=== PATIENT | female | born 1960 | race Caucasian/White ===

== ENCOUNTER 2021-04-01 09:55 | Emergency (ER) | payer OTHER, SELFPAY ==
[2021-04-01] VITALS (11 sets, daily range): BP systolic 76–218; BP diastolic 51–136; PULSE 76–99; RESP 15–18; TEMP 36.7; O2SAT 95–99; BMI 24.7
[2021-04-01] MEDS: metoprolol tartrate 1 mg/1 mL SDV 5 mL 2.5 MG IVP (10:48)
[2021-04-01] MEDS: hyDRALAzine 20 mg/mL INJ 1 mL IVP (10:49)
[2021-04-01] MEDS: metoprolol tartrate 25 mg Tablet PO (10:50)
[2021-04-01] MEDS: amlodipine 10 mg Tablet PO (10:50)
--- NOTE | 2021-04-01 10:50 | PC.PHAR ---
pt states she takes care of her own medications-rx filled on 01/11/21 90d/s for lisinopril 10mg daily pt states for the last 5 days or so she has been taking 10mg bid
--- NOTE | 2021-04-01 10:59 | W.ED.GENADLT ---
HPI - General Adult General: Chief complaint: General Medical Stated complaint: HTN Time Seen by Provider: 04/01/21 10:28 History of Present Illness: HPI narrative: 60-year-old female presents emergency room with elevated blood pressure and headache. She had noticed elevated blood pressure last several days she had doubled up on her lisinopril to twice a day from usual once a day and has not noticed any improvement. She not had any chest pain or suppressed. Onset (ago): day(s) Location: head Quality: aching Relieving factors: none Exacerbating factors: none Associated symptoms: Deny chest pain, confusion, cough, diaphoresis, decreased appetite, dyspnea, fevers/chills, headache(s), malaise, nausea, rash, palpitations, seizures, short of breath, syncope, vomiting or weakness Treatments prior to arrival: other (Oral antihypertensives) Review of Systems Const: Denies: malaise or diaphoresis ENMT: Denies: throat pain, ear or mastoid pain, nasal discharge or nasal congestion Card: Denies: chest pain, palpitations or syncope Resp: Denies: dyspnea GI: Denies: nausea or vomiting : Denies: flank pain, difficulty voiding, dysuria, urinary frequency or urinary urgency Skin/Breast: Denies: rash Neuro: Denies: headache(s) or confusion Physical Exam Const: COMMON NORMALS: no acute distress GENERAL APPEARANCE: cooperative and comfortable ORIENTATION/CONSCIOUSNESS: Yes awake, Yes oriented to person, Yes oriented to place and Yes oriented to time HENMT: COMMON NORMALS: normocephalic, atraumatic and hearing grossly normal bilaterally HEAD & SCALP: normocephalic and atraumatic Neck/C-Spine: COMMON NORMALS: no JVD Resp: COMMON NORMALS: normal respiratory effort, No retractions, No use of accessory muscles and clear to auscultation bilaterally AUSCULTATION: clear to auscultation bilaterally Cardio: COMMON NORMALS: no JVD, regular rate, regular rhythm and No murmurs present (Cardio) RATE: regular rate RHYTHM: regular rhythm GI: COMMON NORMALS: Soft to palpation and No hepatosplenomegaly present AUSCULTATION: Yes normoactive bowel sounds PALPATION: Yes Soft to palpation, No Tenderness to palpation present (GI), No Guarding due to palpation present (GI) and Yes No hepatosplenomegaly present Extremity: COMMON NORMALS: normal to inspection, capillary refill normal, no clubbing, cyanosis or edema, no calf tenderness and no pedal edema Neuro: SENSORIUM/ORIENTATION: Yes oriented to person, Yes oriented to place and Yes oriented to time Skin: COMMON NORMALS: no rashes or lesions noted GENERAL SKIN EXAM: no rashes or lesions noted Course Vital Signs: Vital signs: Vital Signs Temperature 98.1 F 04/01/21 10:19 Pulse Rate 83 04/01/21 14:05 Respiratory Rate 18 04/01/21 14:05 Blood Pressure 96/63 04/01/21 14:05 Pulse Oximetry 97 04/01/21 14:05 MDM - General Adult MDM Narrative: Medical decision making narrative: Patient blood pressure had improved we are about to discharge home and her blood pressure precipitously dropped. She is given a liter of fluids. She is now feeling better we will discharge her home initially we plan on sending her home with amlodipine and metoprolol. We will go ahead and just change that to amlodipine only continue her lisinopril recheck with Dr. Moreno tomorrow or the following day return if has problems Lab Data: Labs: Lab Results 04/01/21 04/01/21 04/01/21 Range/Units 10:37 10:37 11:29 WBC 7.3 (4.0-10.0) 10^3/ uL RBC 4.83 (4.1-5.3) 10^6/u L Hgb 14.7 (11.5-15.3) g/dL Hct 44.6 (37.0-47.0) % MCV 92.3 (81-99) fl MCH 30.4 (28.0-34.0) pg MCHC 33.0 (30.0-36.0) g/dL RDW 12.0 L (12.1-15.1) % Plt Count 280 (130-400) 10^3/c mm MPV 10.0 (7.4-10.4) fL Neut % (Auto) 65.4 % Lymph % (Auto) 27.4 % [place] % (Auto) 5.9 % Eos % (Auto) 0.4 % Baso % (Auto) 0.5 % Neut # (Auto) 4.80 (1.8-7.7) 10^3/u L Lymph # (Auto) 2.0 (0.8-4.8) 10^3/u L [place] # (Auto) 0.4 (0.2-0.9) 10^3/u L Eos # (Auto) 0.0 (0.0-0.8) 10^3/u L Baso # (Auto) 0.0 (0.0-0.1) 10^3/u L Nucleated RBC % (a uto) 0 % Nucleated RBCs # 0.0 /100WBC Sodium 135 L (136-145) mmol/L Potassium 3.9 (3.5-5.1) mmol/L Chloride 98 (98-107) mmol/L Carbon Dioxide 25 (22-29) mmol/L Anion Gap 15.9 (5-19) BUN 5 L (6-20) mg/dL Creatinine 0.5 (0.5-0.9) mg/dL GFR Calculation 126.3 (90-130) mL/min Glucose 95 (65-115) mg/dL Calculated Osmolal ity 277 L (285-295) mOsm/k g Calcium 9.4 (8.5-10.5) mg/dL Total Bilirubin 0.3 (0.15-1.2) mg/dL AST 18 (0-32) U/L ALT 18 (0-33) U/L Alkaline Phosphata se 92 (35-105) IU/L Total Protein 7.6 (6.6-8.7) g/dL Albumin 4.6 (3.5-5.2) g/dL Globulin 3.0 (1.3-4.6) g/dL Urine Color Colorless (Yellow) Urine Appearance Clear (CLEAR) Urine pH 7 (5-7) Ur Specific Gravit y 1.005 (1.005-1.030) Urine Protein Neg (Negative) Urine Glucose (UA) Norm (Normal) Urine Ketones Negative (Negative) Urine Blood Neg (Negative) Urine Nitrate Negative (Negative) Urine Bilirubin Neg (Negative) Urine Urobilinogen Norm (Negative) mg/dL Ur Leukocyte [place] ase Negative (Negative) Discharge Plan Discharge Patient Disposition: Home Clinical Impression: HTN (hypertension) Condition: Stable Prescriptions: New amlodipine 10 mg tablet 10 mg PO DAILY Qty: 30 RF: 0 No Action multivitamin Tablet 1 tab PO DAILY RF: 0 Tylenol 325 mg Tablet 325 mg PO Q4H PRN (Reason: Pain) RF: 0 Aspir-81 81 mg Tablet,Delayed Release (Dr/Ec) 81 mg PO ONCE RF: 0 lisinopril 10 mg tablet 10 mg PO BID RF: 0 CoQ-10 100 mg Capsule 100 mg PO QAM RF: 0 red yeast rice 600 mg Tablet 600 mg PO QAM RF: 0 Discharge Orders: Discharge ED (Routine); Ordered 04/01/21 Ordered By: Kayden Silva Referrals: Niko Moreno DO [Primary Care Provider] - Discharge Diet: Usual diet Discharge Activity: Increase activity as tolerated Patient Instructions: Opioid Safety Activity Restrictions/Additional Instructions: Recheck blood pressure in 2 to 3 days Coding Level of Care Code 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
[2021-04-01 11:02] LABS: Basophils % 0.5 %; Eosinophils % 0.4 %; Hematocrit 44.6 % (37.0-47.0); Hemoglobin 14.7 g/dL (11.5-15.3); Lymphocytes % 27.4 %; Mean Corpuscular Hemoglobin 30.4 pg (28.0-34.0); Mean Corpuscular Volume 92.3 fl (81-99); Monocytes # 0.4 10^3/uL (0.2-0.9); Monocytes % 5.9 %; Neutrophils % 65.4 %; Nucleated Red Blood Cells % 0 %; Platelet Count 280 10^3/cmm (130-400); Red Blood Count 4.83 10^6/uL (4.1-5.3); White Blood Count 7.3 10^3/uL (4.0-10.0)
[2021-04-01 11:15] LABS: Alanine Aminotransferase 18 U/L (0-33); Albumin Level 4.6 g/dL (3.5-5.2); Alkaline Phosphatase 92 IU/L (35-105); Anion Gap 15.9 (5-19); Aspartate Amino Transferase 18 U/L (0-32); Blood Urea Nitrogen 5 mg/dL (6-20); Calcium 9.4 mg/dL (8.5-10.5); Carbon Dioxide 25 mmol/L (22-29); Chloride 98 mmol/L (98-107); Glomerular Filtration Rate 126.3 mL/min (90-130); Glucose 95 mg/dL (65-115); Osmolality Calculated 277 mOsm/kg (285-295); Potassium 3.9 mmol/L (3.5-5.1); Sodium 135 mmol/L (136-145); Total Bilirubin 0.3 mg/dL (0.15-1.2); Total Protein 7.6 g/dL (6.6-8.7)
--- NOTE | 2021-04-01 11:19 | XRR_ITS ---
PROCEDURE INFORMATION: Exam: XR Chest Exam date and time: 04/01/2021 11:19 AM Age: 60 years old Clinical indication: Other: High blood pressure; Additional info: Dyspnea/cough TECHNIQUE: Imaging protocol: XR of the chest. Views: 1 view. COMPARISON: No relevant prior studies available. FINDINGS: Lungs: Unremarkable. No consolidation. Pleural spaces: Unremarkable. No pleural effusion. No pneumothorax. Heart/Mediastinum: Unremarkable. No cardiomegaly. Bones/joints: Unremarkable. XR/XR chest 1V portable [id number] IMPRESSION: No acute findings.
--- NOTE | 2021-04-01 11:19 | ECG_ITS ---
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
[2021-04-01 11:39] LABS: Add Urine Microscopic? NO; Charge for UA Resulting for Rev
[2021-04-01 11:51] LABS: Bilirubin Urine Neg (Negative); Blood Urine Neg (Negative); Glucose Urine UA Norm (Normal); Ketones Urine Negative (Negative); Leukocyte Esterase Urine Negative (Negative); Nitrate Urine Negative (Negative); Protein Urine Neg (Negative); Specific Gravity, Urine 1.005 (1.005-1.030); Urine Appearance Clear (CLEAR); Urine Color Colorless (Yellow); Urobilinogen Urine Norm (Negative); pH Urine 7 (5-7)
[2021-04-01] MEDS: cloNIDine 0.1 mg Tablet PO (11:54)
[2021-04-01] MEDS: hyDRALAzine 20 mg/mL INJ 1 mL 10 MG IVP (11:55)
[2021-04-01] MEDS: lactated ringers 1,000 ML 999 ML IV (13:17)
[2021-04-01] MEDS: ondansetron 2 mg/ML SDV 2 mL 4 MG IVP (13:17)
== END 2021-04-01 14:13 | disposition home or self-care (01) ==
PROVIDERS: Emergency Provider Family Medicine; PCP Electrodiagnostic Medicine
DX: I10 Essential (primary) hypertension (principal); Z79.82 Long term (current) use of aspirin
CPT/HCPCS: 36415; 71045; 80053; 81003; 85025; 93005; 96361; 96374; 96375; 96376; 99284; J0360; J2405; J3490

== ENCOUNTER 2021-04-07 15:58 | Emergency (ER) | payer OTHER, SELFPAY ==
[2021-04-07 16:07] VITALS: BP 128/84; PULSE 111; RESP 15; TEMP 36.7; O2SAT 97; BMI 24.7
--- NOTE | 2021-04-07 17:42 | ECG_ITS ---
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 Measurements Intervals [place] Rate: 90 P: 62 [place]: 155 QRS: -11 QRSD: 96 T: 48 QT: 369 QTc: 454 Interpretive Statements SINUS RHYTHM INDETERMINATE AXIS INCOMPLETE RIGHT BUNDLE BRANCH BLOCK Compared to ECG 04/01/2021 12:08:36 Indeterminate axis now present Incomplete right bundle-branch block now present Electronically Signed On 04-08-2021 19:11:56 CDT by Holly Ambriz M.D. [id number]
[2021-04-07 18:00] VITALS: BP 172/104; PULSE 97; RESP 18; O2SAT 97
--- NOTE | 2021-04-07 18:05 | W.ED.GENADLT ---
HPI - General Adult General: Chief complaint: General Medical Stated complaint: POSS ALLERGIC RX, N/V/SHAKEY Time Seen by Provider: 04/07/21 17:37 History of Present Illness: HPI narrative: Patient is a 60-year-old female comes to the ED with nausea and vomiting and diarrhea. Patient says that she believes she is having a reaction to her recently prescribed Lexapro. Patient says 4 days ago her doctor put her on Lexapro and since she started taking it she began getting nauseous and had diarrhea. She has just been having dry heaves and multiple episodes of diarrhea for the past couple days. Her last dose of Lexapro was at 10 AM today. She also reports that her extremities feel shaky. Associated symptoms: Reports nausea and vomiting; Deny chest pain, dyspnea, headache(s), rash or palpitations Review of Systems Const: Denies: fever(s), chills or fatigue Eyes: Denies: change in vision or eye discomfort ENMT: Denies: throat pain, odynophagia, nasal discharge or nasal congestion Card: Denies: chest pain, palpitations, edema, swelling of feet/ankles, dyspnea on exertion or orthopnea Resp: Denies: dyspnea, productive cough or non-productive cough GI: Reports: nausea, vomiting and diarrhea; Denies: abdominal pain, constipation or hematochezia : Denies: flank pain, dysuria or hematuria Musc: Denies: neck pain, back pain or extremity swelling Skin/Breast: Denies: rash or new lesions Neuro: Reports: involuntary movements (Extremities feels shaky); Denies: headache(s), numbness in extremities or weakness in extremities Physical Exam Const: COMMON NORMALS: no acute distress, patient oriented x3, healthy appearing and alert GENERAL APPEARANCE: cooperative, comfortable and anxious HENMT: COMMON NORMALS: normocephalic HEAD & SCALP: normocephalic MOUTH: Normal oral and palatal mucosa present THROAT: posterior oropharynx normal and uvula midline Eye: COMMON NORMALS: Equal, round and reactive pupils present PUPIL: Yes Equal, round and reactive pupils present Neck/C-Spine: COMMON NORMALS: supple GENERAL: Yes normal visual inspection Resp: COMMON NORMALS: normal respiratory effort, No retractions, No use of accessory muscles and clear to auscultation bilaterally AUSCULTATION: clear to auscultation bilaterally Cardio: COMMON NORMALS: regular rate, regular rhythm, S1 normal heart sound present, S2 normal heart sound present, No gallops present (Cardio), No clicks present (Cardio), No murmurs present (Cardio) and Peripheral pulses 2+ throughout RATE: regular rate RHYTHM: regular rhythm HEART SOUNDS: S1 normal heart sound present and S2 normal heart sound present PERIPHERAL PULSES: Peripheral pulses 2+ throughout GI: COMMON NORMALS: Normal to inspection, nondistended, normoactive bowel sounds present, Soft to palpation, non-tender and no masses PALPATION: Yes Soft to palpation : COMMON NORMALS: Yes no CVA tenderness BLADDER/KIDNEY EXAM: Yes no CVA tenderness Back/Pelvis: COMMON NORMALS: no CVA tenderness Extremity: COMMON NORMALS: normal to inspection and no pedal edema Neuro: COMMON NORMALS: patient oriented x3 and moves all extremities SENSORIUM/ORIENTATION: Yes alert Skin: GENERAL SKIN EXAM: dry skin Course ED course: After patient received IV fluids, Benadryl and Zofran her symptoms improved. She states she is feeling much better and ready to be discharged home. Vital Signs: Vital signs: Vital Signs Temperature 98.0 F 04/07/21 16:07 Pulse Rate 86 04/07/21 21:30 Respiratory Rate 16 04/07/21 21:30 Blood Pressure 109/71 04/07/21 21:30 Pulse Oximetry 95 04/07/21 21:30 MDM - General Adult MDM Narrative: Medical decision making narrative: Patient is a 60-year-old female comes to the ED with nausea, vomiting and diarrhea. Symptoms started right after she began taking Lexapro. She also endorses some increased anxiety as well due to the GI symptoms. These are common medication side effects for Lexapro. Exam is benign. Vitals are stable. CBC unremarkable, sodium 127 and the rest of CMP was unremarkable. Chest x-ray showed no acute findings and EKG showed no acute FL findings. She was given 1 L of IV fluids, Zofran, Benadryl and Ativan and her symptoms improved. She was instructed to stop taking her Lexapro and to contact her doctor tomorrow to determine other medication options for anxiety. She was also instructed to have her sodium level rechecked in the next 3 to 5 days by her PCP. Return to ED precautions given. Patient understood and agreed with plan. Lab Data: Attestation: I reviewed the patient's lab results. Labs: Lab Results 04/07/21 04/07/21 04/07/21 Range/Units 17:55 17:55 19:32 WBC 8.4 (4.0-10.0) 10^3/ uL RBC 4.87 (4.1-5.3) 10^6/u L Hgb 14.9 (11.5-15.3) g/dL Hct 43.8 (37.0-47.0) % MCV 89.9 (81-99) fl MCH 30.6 (28.0-34.0) pg MCHC 34.0 (30.0-36.0) g/dL RDW 11.7 L (12.1-15.1) % Plt Count 316 (130-400) 10^3/c mm MPV 9.8 (7.4-10.4) fL Neut % (Auto) 75.6 % Lymph % (Auto) 17.6 % [place] % (Auto) 6.1 % Eos % (Auto) 0.2 % Baso % (Auto) 0.1 % Neut # (Auto) 6.31 (1.8-7.7) 10^3/u L Lymph # (Auto) 1.5 (0.8-4.8) 10^3/u L [place] # (Auto) 0.5 (0.2-0.9) 10^3/u L Eos # (Auto) 0.0 (0.0-0.8) 10^3/u L Baso # (Auto) 0.0 (0.0-0.1) 10^3/u L Nucleated RBC % (a uto) 0 % Nucleated RBCs # 0.0 /100WBC Sodium 127 L (136-145) mmol/L Potassium 4.0 (3.5-5.1) mmol/L Chloride 91 L (98-107) mmol/L Carbon Dioxide 24 (22-29) mmol/L Anion Gap 16.0 (5-19) BUN 4 L (6-20) mg/dL Creatinine 0.5 (0.5-0.9) mg/dL GFR Calculation 126.3 (90-130) mL/min Glucose 127 H (65-115) mg/dL Calculated Osmolal ity 262 L (285-295) mOsm/k g Calcium 9.3 (8.5-10.5) mg/dL Total Bilirubin 0.5 (0.15-1.2) mg/dL AST 17 (0-32) U/L ALT 17 (0-33) U/L Alkaline Phosphata se 99 (35-105) IU/L Total Protein 7.2 (6.6-8.7) g/dL Albumin 4.7 (3.5-5.2) g/dL Globulin 2.5 (1.3-4.6) g/dL Lipase 28 (13-60) U/L Urine Color Straw (Yellow) Urine Appearance Clear (CLEAR) Urine pH 7 (5-7) Ur Specific Gravit y 1.010 (1.005-1.030) Urine Protein Neg (Negative) Urine Glucose (UA) Norm (Normal) Urine Ketones Negative (Negative) Urine Blood Neg (Negative) Urine Nitrate Negative (Negative) Urine Bilirubin Neg (Negative) Urine Urobilinogen Norm (Negative) mg/dL Ur Leukocyte [place] ase Negative (Negative) Imaging Data^: CXR: Attestation: I personally reviewed and interpreted this imaging study as follows: Radiologist's impression: [address] [address]CTvl ReportSigned Patient: Shandra Alvarez #: [id number]: 1960cct#:[id number]/Sex: 60 / FADM Date: 04/01/21Loc: [facility]/Bed:Attending Dr: Ordering Provider/Ordering MD: Kayden Silva DO Date of Service: 04/01/21 Procedure(s): XR chest 1V portable [id number] Accession Number(s): [id number] Report Number: [id number] PROCEDURE INFORMATION: Exam: XR Chest Exam date and time: 04/01/2021 11:19 AM Age: 60 years old Clinical indication: Other: High blood pressure; Additional info: Dyspnea/cough TECHNIQUE: Imaging protocol: XR of the chest. Views: 1 view. COMPARISON: No relevant prior studies available. FINDINGS: Lungs: Unremarkable. No consolidation. Pleural spaces: Unremarkable. No pleural effusion. No pneumothorax. Heart/Mediastinum: Unremarkable. No cardiomegaly. Bones/joints: Unremarkable. XR/XR chest 1V portable [id number] IMPRESSION: No acute findings. Dictated By:Jf Chapin By:Jf Chapin Date/Time:04/01/21 1236DD/ 1234 EKG Data^: EKG 1: Attestation: I personally reviewed and interpreted this EKG as follows: EKG interpretation date: 04/07/21 Interpretation: Sinus rhythm, 90 bpm, no ST segment elevation or depression seen. Discharge Plan Discharge Patient Disposition: Home Clinical Impression: Medication side effects, Hyponatremia Condition: Stable Prescriptions: No Action acetaminophen [Tylenol] 325 mg Tablet 325 mg PO Q4H PRN (Reason: Pain) RF: 0 lisinopril 10 mg tablet 20 mg PO DAILY RF: 0 amlodipine 10 mg tablet 10 mg PO DAILY PRN (Reason: Blood Pressure) RF: 0 Discharge Orders: Discharge ED (Routine); Ordered 04/07/21 Ordered By: Raúl Monsivais Referrals: Niko Moreno DO [Primary Care Provider] - Discharge Diet: Regular Discharge Activity: Increase activity as tolerated Patient Instructions: Hyponatremia (ED) Activity Restrictions/Additional Instructions: Follow-up with medical provider as directed in the next 1 to 3 days. Have a primary care physician recheck your sodium levels as well in the next couple days. Stop taking your prescribed amlodipine and Lexapro due to the side effects. Talk with your doctor about other medication options for blood pressure and anxiety. Take all other medications as prescribed. Return to the ER or your medical provider if condition worsens. Please read and understand discharge instructions. Thank you for choosing [facility] for your healthcare needs today. Please realize this is an emergency room and that we are providing you with a medical screening exam and this may not be complete and all inclusive of all the testing and or work up that you may need to determine your ailment or severity of your illness. It is very important that you follow up as instructed or that you return to the Emergency Department should you have concerns or if your condition changes or worsens in any way. 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
[2021-04-07 18:07] LABS: Basophils % 0.1 %; Eosinophils % 0.2 %; Hematocrit 43.8 % (37.0-47.0); Hemoglobin 14.9 g/dL (11.5-15.3); Lymphocytes # 1.5 10^3/uL (0.8-4.8); Lymphocytes % 17.6 %; Mean Corpuscular Hemoglobin 30.6 pg (28.0-34.0); Mean Corpuscular Volume 89.9 fl (81-99); Mean Platelet Volume 9.8 fL (7.4-10.4); Monocytes # 0.5 10^3/uL (0.2-0.9); Monocytes % 6.1 %; Neutrophils # 6.31 10^3/uL (1.8-7.7); Neutrophils % 75.6 %; Nucleated Red Blood Cells % 0 %; Platelet Count 316 10^3/cmm (130-400); Red Blood Count 4.87 10^6/uL (4.1-5.3); Red Cell Distribution Width 11.7 % (12.1-15.1); White Blood Count 8.4 10^3/uL (4.0-10.0)
[2021-04-07] MEDS: sodium chloride 0.9% 500 ML 999 ML IV ×2 (18:22→20:59)
[2021-04-07] MEDS: ondansetron 2 mg/ML SDV 2 mL 4 MG IVP (18:23)
[2021-04-07] MEDS: diphenhydrAMINE 50 mg/mL SDV 1mL IVP (18:23)
[2021-04-07] MEDS: LORazepam 2 mg/mL INJ 1 mL 1 MG IVP (19:16)
[2021-04-07 19:44] LABS: Add Urine Microscopic? NO; Charge for UA Resulting for Rev
[2021-04-07 19:54] LABS: Bilirubin Urine Neg (Negative); Blood Urine Neg (Negative); Glucose Urine UA Norm (Normal); Ketones Urine Negative (Negative); Leukocyte Esterase Urine Negative (Negative); Nitrate Urine Negative (Negative); Protein Urine Neg (Negative); Urine Appearance Clear (CLEAR); Urine Color Straw (Yellow); Urobilinogen Urine Norm (Negative); pH Urine 7 (5-7)
[2021-04-07 19:57] LABS: Alanine Aminotransferase 17 U/L (0-33); Albumin Level 4.7 g/dL (3.5-5.2); Alkaline Phosphatase 99 IU/L (35-105); Aspartate Amino Transferase 17 U/L (0-32); Blood Urea Nitrogen 4 mg/dL (6-20); Calcium 9.3 mg/dL (8.5-10.5); Carbon Dioxide 24 mmol/L (22-29); Chloride 91 mmol/L (98-107); Globulin 2.5 g/dL (1.3-4.6); Glomerular Filtration Rate 126.3 mL/min (90-130); Glucose 127 mg/dL (65-115); Lipase 28 U/L (13-60); Osmolality Calculated 262 mOsm/kg (285-295); Sodium 127 mmol/L (136-145); Total Bilirubin 0.5 mg/dL (0.15-1.2); Total Protein 7.2 g/dL (6.6-8.7)
[2021-04-07 21:30] VITALS: BP 109/71; PULSE 86; RESP 16; O2SAT 95
== END 2021-04-07 21:30 | disposition home or self-care (01) ==
PROVIDERS: Emergency Provider Physician Assistant; PCP Electrodiagnostic Medicine
DX: T88.7XXA Unspecified adverse effect of drug or medicament, initial encounter (principal); T50.905A Adverse effect of unspecified drugs, medicaments and biological substances, initial encounter; E87.1 Hypo-osmolality and hyponatremia
CPT/HCPCS: 80053; 81003; 83690; 85025; 87040; 93005; 96374; 96375; 99284; J1200; J2060; J2405; J7040

== ENCOUNTER 2021-04-10 17:18 | Observation (INO) | payer OTHER, SELFPAY ==
[2021-04-10] VITALS (8 sets, daily range): BP systolic 142–194; BP diastolic 86–127; PULSE 102–134; RESP 16–26; TEMP 36.8; O2SAT 97–99; BMI 24.7
--- NOTE | 2021-04-10 17:25 | XRR_ITS ---
PROCEDURE INFORMATION: Exam: XR Chest Exam date and time: 04/10/2021 5:25 PM Age: 60 years old Clinical indication: Hypertension TECHNIQUE: Imaging protocol: XR of the chest. Views: 1 view. COMPARISON: CR (CHEST, ) 04/01/2021 11:26 AM FINDINGS: Lungs: No pulmonary consolidation. There is a nodule in the mid upper right chest measuring 6.4 mm. Pleural spaces: No pleural effusion.; No pneumothorax. Heart/Mediastinum: The cardiac silhouette is unchanged. No gross evidence of pneumomediastinum. Bones/joints: No gross fracture. XR/XR chest 1V portable [id number] IMPRESSION: Nodule in the mid upper right chest. Recommend CT chest to further assess.
--- NOTE | 2021-04-10 17:26 | ECG_ITS ---
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1960 Requested By: Raúl Monsivais Order Number: [id number] Devang MD: MALU COREA Measurements Intervals [place] Rate: 124 P: 47 [place]: 157 QRS: -49 QRSD: 96 T: 41 QT: 429 QTc: 618 Interpretive Statements SINUS TACHYCARDIA INCOMPLETE RIGHT BUNDLE BRANCH BLOCK [90+ ms QRS DURATION, TERMINAL R IN V1/V2, 40+ ms S IN I/aVL/V4/V5/V6] LEFT ANTERIOR FASCICULAR BLOCK [QRS AXIS <= -45, QR IN I, RS IN II] POSSIBLE ANTERIOR MYOCARDIAL INFARCTION , PROBABLY OLD [30 ms Q WAVE IN V3/V4, OR R < 0.2 mV IN V4] Compared to ECG 04/07/2021 18:07:37 Left anterior fascicular block now present Myocardial infarct finding now present Sinus rhythm no longer present Indeterminate axis no longer present Electronically Signed On 04-10-2021 19:25:52 CDT by MALU COREA [id number]
[2021-04-10 17:40] LABS: Basophils % 0.4 %; Eosinophils % 0.4 %; Hematocrit 42.9 % (37.0-47.0); Hemoglobin 14.4 g/dL (11.5-15.3); Lymphocytes # 2.4 10^3/uL (0.8-4.8); Lymphocytes % 30.4 %; Mean Corpuscular HGB Conc 33.6 g/dL (30.0-36.0); Mean Corpuscular Volume 89.4 fl (81-99); Monocytes # 0.6 10^3/uL (0.2-0.9); Neutrophils # 4.71 10^3/uL (1.8-7.7); Neutrophils % 60.5 %; Nucleated Red Blood Cells % 0 %; Platelet Count 316 10^3/cmm (130-400); Red Cell Distribution Width 11.5 % (12.1-15.1); White Blood Count 7.8 10^3/uL (4.0-10.0)
--- NOTE | 2021-04-10 17:46 | CTR_ITS ---
PROCEDURE INFORMATION: Exam: CT Head Without Contrast Exam date and time: 04/10/2021 5:46 PM Age: 60 years old Clinical indication: Pain. Dizziness and visual disturbance. Headache. Hypertensive urgency. TECHNIQUE: Imaging protocol: Computed tomography of the head without contrast. Radiation optimization: All CT scans at this facility use at least one of these dose optimization techniques: automated exposure control; mA and/or kV adjustment per patient size (includes targeted exams where dose is matched to clinical indication); or iterative reconstruction. COMPARISON: No relevant prior studies available. RADIATION DOSE METRICS: Total DLP (mGy-cm): 764.07 FINDINGS: Brain: No acute intracranial hemorrhage. No mass, mass effect or midline shift.; There is no evidence of acute large vessel infarct.; The subcortical and periventricular white matter is normal in attenuation.; The posterior fossa is grossly unremarkable; however, it is partially obscurred by beam hardening artifact. Cerebral ventricles: The ventricles are normal in configuration. Paranasal sinuses: The visualized paranasal sinuses are clear. Mastoid air cells: No mastoid effusion. Orbital cavity: The visualized orbits are unremarkable. Bones/joints: No acute fracture is seen. CT/CT head wo con* [id number] IMPRESSION: No acute intracranial abnormality. Radiation Dose CTDIVOL = (mGy): DLP = 764.07 (mGy-cm)
--- NOTE | 2021-04-10 17:48 | W.ED.RECABL ---
Documented by User: YOSSI Davila 04/11/21 02:07 HPI - Recheck/Abnormal Lab/Rx General: Chief Complaint: Recheck/Abnormal Lab/Rx Stated Complaint: HYPERTENSION Time Seen by Provider: 04/10/21 17:25 History of Present Illness: HPI narrative: Patient is a 60-year-old female comes to the ED with elevated blood pressure and chest tightness. Patient has been seen here in the ED for similar complaint on April 01 and April 07. She has a history of anxiety and takes Xanax. Patient says yesterday she worked about 11 hours and then today she worked about 7 hours and when she got home she started feeling some chest tightness, elevated blood pressure and anxiety. She took one of her Xanax tabs at around 2 PM today and then took a second tab around 4 PM. She says the symptoms have improved some upon arrival to the ED. She says the chest tightness started while she was at rest at home. She went in and saw her PCP today and they told her she is likely having anxiety and sent a prescription to the pharmacy for daily med to help with anxiety. She has not been to the pharmacy yet to pick that up. She then came here to be evaluated. Patient says she lives at home alone and notices that symptoms like this usually occur when she is at home alone. She says she does not really ever have symptoms at work and while she is up doing things. She has lived at home alone now for approximately 2 years but says the last couple weeks she has noticed an increase in these anxiety attacks symptoms. Denies any known acute stress in her life. Review of Systems Const: Denies: fever(s), chills or fatigue Eyes: Denies: change in vision or eye discomfort ENMT: Denies: throat pain, odynophagia, nasal discharge or nasal congestion Card: Reports: chest pain (chest tightness); Denies: palpitations, edema, swelling of feet/ankles, dyspnea on exertion or orthopnea Resp: Denies: dyspnea, productive cough or non-productive cough GI: Denies: abdominal pain, nausea, vomiting, diarrhea, constipation or hematochezia : Denies: flank pain, dysuria or hematuria Musc: Denies: neck pain, back pain or extremity swelling Skin/Breast: Denies: rash or new lesions Neuro: Reports: headache(s); Denies: numbness in extremities or weakness in extremities Psych: Reports: anxiety PFSH ED PFSH: Medical History History of hypertension Labile hypertension Surgical History History of hysterectomy Family History Mother Hypertension Father Hypertension Cancer Social History Smoking and tobacco status: never smoked Alcohol intake: current Alcohol intake frequency: holidays/special occasions only Substance/Drug Use: never Physical Exam Const: COMMON NORMALS: no acute distress, patient oriented x3 and alert GENERAL APPEARANCE: cooperative and anxious HENMT: COMMON NORMALS: normocephalic HEAD & SCALP: normocephalic MOUTH: Normal oral and palatal mucosa present THROAT: posterior oropharynx normal and uvula midline Eye: COMMON NORMALS: Equal, round and reactive pupils present PUPIL: Yes Equal, round and reactive pupils present Neck/C-Spine: COMMON NORMALS: supple GENERAL: Yes normal visual inspection Resp: COMMON NORMALS: normal respiratory effort, No retractions, No use of accessory muscles and clear to auscultation bilaterally AUSCULTATION: clear to auscultation bilaterally Cardio: COMMON NORMALS: regular rhythm, S1 normal heart sound present, S2 normal heart sound present, No gallops present (Cardio), No clicks present (Cardio), No murmurs present (Cardio) and Peripheral pulses 2+ throughout RATE: tachycardic RHYTHM: regular rhythm HEART SOUNDS: S1 normal heart sound present and S2 normal heart sound present PERIPHERAL PULSES: Peripheral pulses 2+ throughout GI: COMMON NORMALS: Normal to inspection, nondistended, normoactive bowel sounds present, Soft to palpation, non-tender and no masses PALPATION: Yes Soft to palpation : COMMON NORMALS: Yes no CVA tenderness BLADDER/KIDNEY EXAM: Yes no CVA tenderness Back/Pelvis: COMMON NORMALS: no CVA tenderness Neuro: COMMON NORMALS: patient oriented x3, CN's II-XII intact bilaterally, moves all extremities, no focal motor deficits and no sensory deficits noted SENSORIUM/ORIENTATION: Yes alert SENSORY EXAM: Yes extremities (intact) MOTOR EXAM: 5/5 motor strength present throughout Skin: GENERAL SKIN EXAM: dry skin Course Reevaluation(s): Reevaluation #1: After reevaluating the patient her heart rate is still in the 130s and she is complaining of not feeling able to take a deep breath. I spoke with Dr. Guevara and he went in and evaluated the patient. EKG was done as well and showed sinus tachycardia with a rate of 132. Time: 20:13 Consultations: Consultation #1: I contacted Dr. Barnes and told about patient case and he agreed to have patient admitted. Vital Signs: Vital signs: Vital Signs Temperature 97.4 F L 04/11/21 07:36 Pulse Rate 94 04/11/21 07:36 Respiratory Rate 18 04/11/21 07:36 Blood Pressure 162/91 04/11/21 07:36 Pulse Oximetry 99 04/11/21 07:36 MDM - Recheck/Abnormal Lab/Rx MDM Narrative: Medical decision making narrative: Patient is a 60-year-old female comes to the ED with chest tightness and elevated blood pressure. Patient has been seen here in the ED 3 times over the past 10 days for same complaint. Vitals blood pressure 192/127, pulse 130, respirations 22, temp 98.3, O2 sat 99% on room air. Patient does have some anxiety and took Xanax before coming to the ED but her symptoms are not improving. Patient appears very anxious and is tachycardic. CBC, CMP were unremarkable. Troponin negative. D-dimer normal. EKG showed sinus tachycardia but no other acute findings. Patient was given IV fluids while here in the ED and she remained tachycardic with a rate between 1 tornado 140. Chest x-ray showed a nodule in mid upper right chest. Head CT showed no acute findings. Chest CTA showed small right upper segmental PE with no right heart strain. CT also showed some adrenal gland inflammation. We spoke with Dr. Guevara about patient case and he evaluated patient as well and agreed that patient needs to be admitted. I contacted Dr. Barnes and told about patient case and he agreed to have patient admitted. Lab Data: Attestation: I reviewed the patient's lab results. Labs: Lab Results 04/10/21 04/10/21 04/10/21 Range/Units 17:08 17:08 17:08 WBC 7.8 (4.0-10.0) 10^3/ uL RBC 4.80 (4.1-5.3) 10^6/u L Hgb 14.4 (11.5-15.3) g/dL Hct 42.9 (37.0-47.0) % MCV 89.4 (81-99) fl MCH 30.0 (28.0-34.0) pg MCHC 33.6 (30.0-36.0) g/dL RDW 11.5 L (12.1-15.1) % Plt Count 316 (130-400) 10^3/c mm MPV 10.0 (7.4-10.4) fL Neut % (Auto) 60.5 % Lymph % (Auto) 30.4 % [place] % (Auto) 8.0 % Eos % (Auto) 0.4 % Baso % (Auto) 0.4 % Neut # (Auto) 4.71 (1.8-7.7) 10^3/u L Lymph # (Auto) 2.4 (0.8-4.8) 10^3/u L [place] # (Auto) 0.6 (0.2-0.9) 10^3/u L Eos # (Auto) 0.0 (0.0-0.8) 10^3/u L Baso # (Auto) 0.0 (0.0-0.1) 10^3/u L Nucleated RBC % (a uto) 0 % Nucleated RBCs # 0.0 /100WBC D-Dimer (0-0.59) ug/mIFE U Sodium 133 L (136-145) mmol/L Potassium 4.0 (3.5-5.1) mmol/L Chloride 96 L (98-107) mmol/L Carbon Dioxide 25 (22-29) mmol/L Anion Gap 16.0 (5-19) BUN 7 (6-20) mg/dL Creatinine 0.5 (0.5-0.9) mg/dL GFR Calculation 126.3 (90-130) mL/min Glucose 78 (65-115) mg/dL Calculated Osmolal ity 273 L (285-295) mOsm/k g Calcium 9.5 (8.5-10.5) mg/dL Total Bilirubin 0.3 (0.15-1.2) mg/dL AST 18 (0-32) U/L ALT 20 (0-33) U/L Alkaline Phosphata se 91 (35-105) IU/L Troponin T Baselin e 7 (0-10) ng/L Troponin T 120 Min [place] (0-10) ng/L Delta Troponin T (0-10) ABS# Troponin T Hi Sens 6Hr (0-10) ng/L Troponin T Hi Sens 6Hr Delta (0-12) ng/L NT-Pro-B Natriuret Pep 17 (0-125) pg/mL Total Protein 7.9 (6.6-8.7) g/dL Albumin 4.8 (3.5-5.2) g/dL Globulin 3.1 (1.3-4.6) g/dL Lipase 44 (13-60) U/L Random Cortisol (2.47-19.5) ug/d L Urine Color (Yellow) Urine Appearance (CLEAR) Urine pH (5-7) Ur Specific Gravit y (1.005-1.030) Urine Protein (Negative) Urine Glucose (UA) (Normal) Urine Ketones (Negative) Urine Blood (Negative) Urine Nitrate (Negative) Urine Bilirubin (Negative) Urine Urobilinogen (Negative) mg/dL Ur Leukocyte [place] (Negative) 04/10/21 04/10/21 04/10/21 Range/Units 17:08 17:34 21:02 WBC (4.0-10.0) 10^3/ uL RBC (4.1-5.3) 10^6/u L Hgb (11.5-15.3) g/dL Hct (37.0-47.0) % MCV (81-99) fl MCH (28.0-34.0) pg MCHC (30.0-36.0) g/dL RDW (12.1-15.1) % Plt Count (130-400) 10^3/c mm MPV (7.4-10.4) fL Neut % (Auto) % Lymph % (Auto) % [place] % (Auto) % Eos % (Auto) % Baso % (Auto) % Neut # (Auto) (1.8-7.7) 10^3/u L Lymph # (Auto) (0.8-4.8) 10^3/u L [place] # (Auto) (0.2-0.9) 10^3/u L Eos # (Auto) (0.0-0.8) 10^3/u L Baso # (Auto) (0.0-0.1) 10^3/u L Nucleated RBC % (a uto) % Nucleated RBCs # /100WBC D-Dimer <= 0.27 (0-0.59) ug/mIFE U Sodium (136-145) mmol/L Potassium (3.5-5.1) mmol/L Chloride (98-107) mmol/L Carbon Dioxide (22-29) mmol/L Anion Gap (5-19) BUN (6-20) mg/dL Creatinine (0.5-0.9) mg/dL GFR Calculation (90-130) mL/min Glucose (65-115) mg/dL Calculated Osmolal ity (285-295) mOsm/k g Calcium (8.5-10.5) mg/dL Total Bilirubin (0.15-1.2) mg/dL AST (0-32) U/L ALT (0-33) U/L Alkaline Phosphata se (35-105) IU/L Troponin T Baselin e (0-10) ng/L Troponin T 120 Min [place] 10.83 H (0-10) ng/L Delta Troponin T 3.83 (0-10) ABS# Troponin T Hi Sens 6Hr (0-10) ng/L Troponin T Hi Sens 6Hr Delta (0-12) ng/L NT-Pro-B Natriuret Pep (0-125) pg/mL Total Protein (6.6-8.7) g/dL Albumin (3.5-5.2) g/dL Globulin (1.3-4.6) g/dL Lipase (13-60) U/L Random Cortisol (2.47-19.5) ug/d L Urine Color Straw (Yellow) Urine Appearance Clear (CLEAR) Urine pH 7 (5-7) Ur Specific Gravit y 1.000 L (1.005-1.030) Urine Protein Neg (Negative) Urine Glucose (UA) Norm (Normal) Urine Ketones 1+ H (Negative) Urine Blood Neg (Negative) Urine Nitrate Negative (Negative) Urine Bilirubin Neg (Negative) Urine Urobilinogen Norm (Negative) mg/dL Ur Leukocyte [place] Negative (Negative) 09/15/21 09/15/21 Range/Units 23:24 23:24 WBC (4.0-10.0) 10^3/ uL RBC (4.1-5.3) 10^6/u L Hgb (11.5-15.3) g/dL Hct (37.0-47.0) % MCV (81-99) fl MCH (28.0-34.0) pg MCHC (30.0-36.0) g/dL RDW (12.1-15.1) % Plt Count (130-400) 10^3/c mm MPV (7.4-10.4) fL Neut % (Auto) % Lymph % (Auto) % [place] % (Auto) % Eos % (Auto) % Baso % (Auto) % Neut # (Auto) (1.8-7.7) 10^3/u L Lymph # (Auto) (0.8-4.8) 10^3/u L [place] # (Auto) (0.2-0.9) 10^3/u L Eos # (Auto) (0.0-0.8) 10^3/u L Baso # (Auto) (0.0-0.1) 10^3/u L Nucleated RBC % (a uto) % Nucleated RBCs # /100WBC D-Dimer (0-0.59) ug/mIFE U Sodium (136-145) mmol/L Potassium (3.5-5.1) mmol/L Chloride (98-107) mmol/L Carbon Dioxide (22-29) mmol/L Anion Gap (5-19) BUN (6-20) mg/dL Creatinine (0.5-0.9) mg/dL GFR Calculation (90-130) mL/min Glucose (65-115) mg/dL Calculated Osmolal ity (285-295) mOsm/k g Calcium (8.5-10.5) mg/dL Total Bilirubin (0.15-1.2) mg/dL AST (0-32) U/L ALT (0-33) U/L Alkaline Phosphata se (35-105) IU/L Troponin T Baselin e (0-10) ng/L Troponin T 120 Min [place] (0-10) ng/L Delta Troponin T (0-10) ABS# Troponin T Hi Sens 6Hr 11.59 H (0-10) ng/L Troponin T Hi Sens 6Hr Delta 4.59 (0-12) ng/L NT-Pro-B Natriuret Pep (0-125) pg/mL Total Protein (6.6-8.7) g/dL Albumin (3.5-5.2) g/dL Globulin (1.3-4.6) g/dL Lipase (13-60) U/L Random Cortisol 11.24 (2.47-19.5) ug/d L Urine Color (Yellow) Urine Appearance (CLEAR) Urine pH (5-7) Ur Specific Gravit y (1.005-1.030) Urine Protein (Negative) Urine Glucose (UA) (Normal) Urine Ketones (Negative) Urine Blood (Negative) Urine Nitrate (Negative) Urine Bilirubin (Negative) Urine Urobilinogen (Negative) mg/dL Ur Leukocyte [place] (Negative) Imaging Data^: CT Head: Attestation: I personally reviewed and interpreted this imaging study as follows: Radiologist's impression: [address] [address] [address] Scan Report Signed Patient: Shandra Alvarez Unit #: [id number] : 1960 Age/Sex: 60 / F ADM Date: 04/10/21 Loc: ER Room/Bed: Attending Dr: Ordering Provider/Ordering MD: Raúl Monsivais Date of Service: 04/10/21 Procedure(s): CT head wo con* [id number] Accession Number(s): [id number] Report Number: [id number] PROCEDURE INFORMATION: Exam: CT Head Without Contrast Exam date and time: 04/10/2021 5:46 PM Age: 60 years old Clinical indication: Pain. Dizziness and visual disturbance. Headache. Hypertensive urgency. TECHNIQUE: Imaging protocol: Computed tomography of the head without contrast. Radiation optimization: All CT scans at this facility use at least one of these dose optimization techniques: automated exposure control; mA and/or kV adjustment per patient size (includes targeted exams where dose is matched to clinical indication); or iterative reconstruction. COMPARISON: No relevant prior studies available. RADIATION DOSE METRICS: Total DLP (mGy-cm): 764.07 FINDINGS: Brain: No acute intracranial hemorrhage. No mass, mass effect or midline shift.; There is no evidence of acute large vessel infarct.; The subcortical and periventricular white matter is normal in attenuation.; The posterior fossa is grossly unremarkable; however, it is partially obscurred by beam hardening artifact. Cerebral ventricles: The ventricles are normal in configuration. Paranasal sinuses: The visualized paranasal sinuses are clear. Mastoid air cells: No mastoid effusion. Orbital cavity: The visualized orbits are unremarkable. Bones/joints: No acute fracture is seen. CT/CT head wo con* [id number] IMPRESSION: No acute intracranial abnormality. Radiation Dose CTDIVOL = (mGy): DLP = 764.07 (mGy-cm) Dictated By: Yang Carrera Signed By: Yang Carrera Signed Date/Time: 04/10/211832 DD/ 30 CXR: Attestation: I personally reviewed and interpreted this imaging study as follows: Radiologist's impression: [address] [address] XRay Report Signed Patient: Shandra Alvarez Unit #: [id number] : 1960 Age/Sex: 60 / F ADM Date: 04/10/21 Loc: ER Room/Bed: Attending Dr: Ordering Provider/Ordering MD: Raúl Monsivais Date of Service: 04/10/21 Procedure(s): XR chest 1V portable [id number] Accession Number(s): [id number] Report Number: [id number] PROCEDURE INFORMATION: Exam: XR Chest Exam date and time: 04/10/2021 5:25 PM Age: 60 years old Clinical indication: Hypertension TECHNIQUE: Imaging protocol: XR of the chest. Views: 1 view. COMPARISON: CR (CHEST, ) 04/01/2021 11:26 AM FINDINGS: Lungs: No pulmonary consolidation. There is a nodule in the mid upper right chest measuring 6.4 mm. Pleural spaces: No pleural effusion.; No pneumothorax. Heart/Mediastinum: The cardiac silhouette is unchanged. No gross evidence of pneumomediastinum. Bones/joints: No gross fracture. XR/XR chest 1V portable [id number] IMPRESSION: Nodule in the mid upper right chest. Recommend CT chest to further assess. Dictated By: Yang Carrera Signed By: Yang Carrera Signed Date/Time: 04/10/211814 DD/ 12 EKG Data^: EKG 1: Attestation: I personally reviewed and interpreted this EKG as follows: EKG interpretation date: 04/10/21 Interpretation: Sinus tachycardia, 103 bpm, no ST segment elevation or depression seen. EKG 2: Attestation: I personally reviewed and interpreted this EKG as follows: EKG interpretation date: 04/10/21 EKG interpretation time: 20:12 Interpretation: Sinus tachycardia, 132 bpm, no ST segment elevation or depression seen. Dr. Guevara evaluated EKG as well. Discharge Plan Discharge Admit Provider: Steve Barnes Coding Level of Care Code ED Business Systems Developer for Chg Fwd Exam Comprehensive Documented by User: Demario Guevara MD 04/11/21 11:08 HPI - Recheck/Abnormal Lab/Rx General: Chief Complaint: Recheck/Abnormal Lab/Rx Stated Complaint: HYPERTENSION Time Seen by Provider: 04/10/21 17:25 [facility] ED PFSH: Medical History History of hypertension Labile hypertension Surgical History History of hysterectomy Family History Mother Hypertension Father Hypertension Cancer Social History Smoking and tobacco status: never smoked Alcohol intake: current Alcohol intake frequency: holidays/special occasions only Substance/Drug Use: never Course ED course: Personally saw the patient with the nurse practitioner. Agree with findings plan and disposition. Agree with admission for pulmonary embolism Vital Signs: Vital signs: Vital Signs Temperature 97.4 F L 04/11/21 07:36 Pulse Rate 94 04/11/21 07:36 Respiratory Rate 18 04/11/21 07:36 Blood Pressure 162/91 04/11/21 07:36 Pulse Oximetry 99 04/11/21 07:36 MDM - Recheck/Abnormal Lab/Rx Lab Data: Labs: Lab Results 04/10/21 04/10/21 04/10/21 Range/Units 17:08 17:08 17:08 WBC 7.8 (4.0-10.0) 10^3/ uL RBC 4.80 (4.1-5.3) 10^6/u L Hgb 14.4 (11.5-15.3) g/dL Hct 42.9 (37.0-47.0) % MCV 89.4 (81-99) fl MCH 30.0 (28.0-34.0) pg MCHC 33.6 (30.0-36.0) g/dL RDW 11.5 L (12.1-15.1) % Plt Count 316 (130-400) 10^3/c mm MPV 10.0 (7.4-10.4) fL Neut % (Auto) 60.5 % Lymph % (Auto) 30.4 % [place] % (Auto) 8.0 % Eos % (Auto) 0.4 % Baso % (Auto) 0.4 % Neut # (Auto) 4.71 (1.8-7.7) 10^3/u L Lymph # (Auto) 2.4 (0.8-4.8) 10^3/u L [place] # (Auto) 0.6 (0.2-0.9) 10^3/u L Eos # (Auto) 0.0 (0.0-0.8) 10^3/u L Baso # (Auto) 0.0 (0.0-0.1) 10^3/u L Nucleated RBC % (a uto) 0 % Nucleated RBCs # 0.0 /100WBC D-Dimer (0-0.59) ug/mIFE U Sodium 133 L (136-145) mmol/L Potassium 4.0 (3.5-5.1) mmol/L Chloride 96 L (98-107) mmol/L Carbon Dioxide 25 (22-29) mmol/L Anion Gap 16.0 (5-19) BUN 7 (6-20) mg/dL Creatinine 0.5 (0.5-0.9) mg/dL GFR Calculation 126.3 (90-130) mL/min Glucose 78 (65-115) mg/dL Calculated Osmolal ity 273 L (285-295) mOsm/k g Calcium 9.5 (8.5-10.5) mg/dL Total Bilirubin 0.3 (0.15-1.2) mg/dL AST 18 (0-32) U/L ALT 20 (0-33) U/L Alkaline Phosphata se 91 (35-105) IU/L Troponin T Baselin e 7 (0-10) ng/L Troponin T 120 Min [place] (0-10) ng/L Delta Troponin T (0-10) ABS# Troponin T Hi Sens 6Hr (0-10) ng/L Troponin T Hi Sens 6Hr Delta (0-12) ng/L NT-Pro-B Natriuret Pep 17 (0-125) pg/mL Total Protein 7.9 (6.6-8.7) g/dL Albumin 4.8 (3.5-5.2) g/dL Globulin 3.1 (1.3-4.6) g/dL Lipase 44 (13-60) U/L Random Cortisol (2.47-19.5) ug/d L Urine Color (Yellow) Urine Appearance (CLEAR) Urine pH (5-7) Ur Specific Gravit y (1.005-1.030) Urine Protein (Negative) Urine Glucose (UA) (Normal) Urine Ketones (Negative) Urine Blood (Negative) Urine Nitrate (Negative) Urine Bilirubin (Negative) Urine Urobilinogen (Negative) mg/dL Ur Leukocyte [place] (Negative) 04/10/21 04/10/21 04/10/21 Range/Units 17:08 17:34 21:02 WBC (4.0-10.0) 10^3/ uL RBC (4.1-5.3) 10^6/u L Hgb (11.5-15.3) g/dL Hct (37.0-47.0) % MCV (81-99) fl MCH (28.0-34.0) pg MCHC (30.0-36.0) g/dL RDW (12.1-15.1) % Plt Count (130-400) 10^3/c mm MPV (7.4-10.4) fL Neut % (Auto) % Lymph % (Auto) % [place] % (Auto) % Eos % (Auto) % Baso % (Auto) % Neut # (Auto) (1.8-7.7) 10^3/u L Lymph # (Auto) (0.8-4.8) 10^3/u L [place] # (Auto) (0.2-0.9) 10^3/u L Eos # (Auto) (0.0-0.8) 10^3/u L Baso # (Auto) (0.0-0.1) 10^3/u L Nucleated RBC % (a uto) % Nucleated RBCs # /100WBC D-Dimer <= 0.27 (0-0.59) ug/mIFE U Sodium (136-145) mmol/L Potassium (3.5-5.1) mmol/L Chloride (98-107) mmol/L Carbon Dioxide (22-29) mmol/L Anion Gap (5-19) BUN (6-20) mg/dL Creatinine (0.5-0.9) mg/dL GFR Calculation (90-130) mL/min Glucose (65-115) mg/dL Calculated Osmolal ity (285-295) mOsm/k g Calcium (8.5-10.5) mg/dL Total Bilirubin (0.15-1.2) mg/dL AST (0-32) U/L ALT (0-33) U/L Alkaline Phosphata se (35-105) IU/L Troponin T Baselin e (0-10) ng/L Troponin T 120 Min [place] 10.83 H (0-10) ng/L Delta Troponin T 3.83 (0-10) ABS# Troponin T Hi Sens 6Hr (0-10) ng/L Troponin T Hi Sens 6Hr Delta (0-12) ng/L NT-Pro-B Natriuret Pep (0-125) pg/mL Total Protein (6.6-8.7) g/dL Albumin (3.5-5.2) g/dL Globulin (1.3-4.6) g/dL Lipase (13-60) U/L Random Cortisol (2.47-19.5) ug/d L Urine Color Straw (Yellow) Urine Appearance Clear (CLEAR) Urine pH 7 (5-7) Ur Specific Gravit y 1.000 L (1.005-1.030) Urine Protein Neg (Negative) Urine Glucose (UA) Norm (Normal) Urine Ketones 1+ H (Negative) Urine Blood Neg (Negative) Urine Nitrate Negative (Negative) Urine Bilirubin Neg (Negative) Urine Urobilinogen Norm (Negative) mg/dL Ur Leukocyte [place] Negative (Negative) 04/10/21 04/10/21 Range/Units 23:24 23:24 WBC (4.0-10.0) 10^3/ uL RBC (4.1-5.3) 10^6/u L Hgb (11.5-15.3) g/dL Hct (37.0-47.0) % MCV (81-99) fl MCH (28.0-34.0) pg MCHC (30.0-36.0) g/dL RDW (12.1-15.1) % Plt Count (130-400) 10^3/c mm MPV (7.4-10.4) fL Neut % (Auto) % Lymph % (Auto) % [place] % (Auto) % Eos % (Auto) % Baso % (Auto) % Neut # (Auto) (1.8-7.7) 10^3/u L Lymph # (Auto) (0.8-4.8) 10^3/u L [place] # (Auto) (0.2-0.9) 10^3/u L Eos # (Auto) (0.0-0.8) 10^3/u L Baso # (Auto) (0.0-0.1) 10^3/u L Nucleated RBC % (a uto) % Nucleated RBCs # /100WBC D-Dimer (0-0.59) ug/mIFE U Sodium (136-145) mmol/L Potassium (3.5-5.1) mmol/L Chloride (98-107) mmol/L Carbon Dioxide (22-29) mmol/L Anion Gap (5-19) BUN (6-20) mg/dL Creatinine (0.5-0.9) mg/dL GFR Calculation (90-130) mL/min Glucose (65-115) mg/dL Calculated Osmolal ity (285-295) mOsm/k g Calcium (8.5-10.5) mg/dL Total Bilirubin (0.15-1.2) mg/dL AST (0-32) U/L ALT (0-33) U/L Alkaline Phosphata se (35-105) IU/L Troponin T Baselin e (0-10) ng/L Troponin T 120 Min [place] (0-10) ng/L Delta Troponin T (0-10) ABS# Troponin T Hi Sens 6Hr 11.59 H (0-10) ng/L Troponin T Hi Sens 6Hr Delta 4.59 (0-12) ng/L NT-Pro-B Natriuret Pep (0-125) pg/mL Total Protein (6.6-8.7) g/dL Albumin (3.5-5.2) g/dL Globulin (1.3-4.6) g/dL Lipase (13-60) U/L Random Cortisol 11.24 (2.47-19.5) ug/d L Urine Color (Yellow) Urine Appearance (CLEAR) Urine pH (5-7) Ur Specific Gravit y (1.005-1.030) Urine Protein (Negative) Urine Glucose (UA) (Normal) Urine Ketones (Negative) Urine Blood (Negative) Urine Nitrate (Negative) Urine Bilirubin (Negative) Urine Urobilinogen (Negative) mg/dL Ur Leukocyte [place] (Negative) Discharge Plan Discharge Admit Provider: Steve Barnes Coding Level of Care Code ED Business Systems Developer for Chg Fwd Exam Comprehensive
--- NOTE | 2021-04-10 17:52 | PC.NURSE ---
PATIENT PLACED ON CARDIAC MONITORING.
[2021-04-10 17:53] LABS: Add Urine Microscopic? NO
[2021-04-10 17:54] LABS: Bilirubin Urine Neg (Negative); Blood Urine Neg (Negative); Glucose Urine UA Norm (Normal); Ketones Urine 1+ (Negative); Leukocyte Esterase Urine Negative (Negative); Nitrate Urine Negative (Negative); Protein Urine Neg (Negative); Urine Appearance Clear (CLEAR); Urine Color Straw (Yellow); Urobilinogen Urine Norm (Negative); pH Urine 7 (5-7)
[2021-04-10 17:55] LABS: Charge for UA Resulting for Rev
[2021-04-10 18:09] LABS: Troponin(5th) Baseline 7 ng/L (0-10)
[2021-04-10 18:18] LABS: Alanine Aminotransferase 20 U/L (0-33); Albumin Level 4.8 g/dL (3.5-5.2); Alkaline Phosphatase 91 IU/L (35-105); Aspartate Amino Transferase 18 U/L (0-32); Blood Urea Nitrogen 7 mg/dL (6-20); Calcium 9.5 mg/dL (8.5-10.5); Carbon Dioxide 25 mmol/L (22-29); Chloride 96 mmol/L (98-107); Globulin 3.1 g/dL (1.3-4.6); Glomerular Filtration Rate 126.3 mL/min (90-130); Glucose 78 mg/dL (65-115); Lipase 44 U/L (13-60); NT Pro B Type Natriuretic Pept 17 pg/mL (0-125); Osmolality Calculated 273 mOsm/kg (285-295); Sodium 133 mmol/L (136-145); Total Bilirubin 0.3 mg/dL (0.15-1.2); Total Protein 7.9 g/dL (6.6-8.7)
[2021-04-10] MEDS: aspirin 81 mg Chew Tablet 324 MG PO (18:18)
--- NOTE | 2021-04-10 18:23 | PC.NURSE ---
PATIENT RETURNED FROM CT AND PLACED BACK ON THE CARDIAC MONITORS.
[2021-04-10] MEDS: hyDRALAzine 20 mg/mL INJ 1 mL 10 MG IVP (19:08)
--- NOTE | 2021-04-10 19:26 | ECG_ITS ---
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: : 1960 Requested By: Raúl Monsivais Order Number: [id number] Devang MD: MALU COREA Measurements Intervals [place] Rate: 103 P: 52 VT: 163 QRS: 11 QRSD: 92 T: 27 QT: 343 QTc: 449 Interpretive Statements SINUS TACHYCARDIA POSSIBLE LEFT ATRIAL ENLARGEMENT [-0.1mV P-WAVE IN V1/V2] INCOMPLETE RIGHT BUNDLE BRANCH BLOCK [90+ ms QRS DURATION, TERMINAL R IN V1/V2, 40+ ms S IN I/aVL/V4/V5/V6] SEPTAL MYOCARDIAL INFARCTION , OF INDETERMINATE AGE [40+ ms Q WAVE IN V1/V2] Compared to ECG 04/10/2021 17:38:43 Left anterior fascicular block no longer present Myocardial infarct finding still present Electronically Signed On 04-10-2021 19:27:56 CDT by MALU COREA [id number]
--- NOTE | 2021-04-10 20:13 | PC.NURSE ---
EKG PERFORMED BY THIS NURSE AND GIVEN TO PROVIDER.
--- NOTE | 2021-04-10 20:17 | CTR_ITS ---
PROCEDURE INFORMATION: Exam: CTA Chest With Contrast Exam date and time: 04/10/2021 8:17 PM Age: 60 years old Clinical indication: Chest pain/pressure and tightness. Shortness of breath and tachycardia. TECHNIQUE: Imaging protocol: Computed tomographic angiography of the chest with contrast. 3D rendering (Not supervised by radiologist): MIP and/or 3D reconstructed images were created by the technologist. Radiation optimization: All CT scans at this facility use at least one of these dose optimization techniques: automated exposure control; mA and/or kV adjustment per patient size (includes targeted exams where dose is matched to clinical indication); or iterative reconstruction. Contrast material: OMNI 350; Contrast volume: 64 ml; Contrast route: INTRAVENOUS (IV); COMPARISON: CR (CHEST, ) 04/10/2021 5:38 PM RADIATION DOSE METRICS: Total DLP (mGy-cm): 518.34 FINDINGS: Pulmonary arteries: Assessment for pulmonary embolus is compromised by streak and motion artifacts. There is a tiny filling defect in a segmental branch of the right upper lobe pulmonary artery suspicious for a tiny pulmonary embolus (series 2, image 129). Aorta: No thoracic aortic aneurysm. No thoracic aortic dissection. Lungs: No pulmonary consolidation.; No pulmonary mass. There is a calcified granuloma in the mid right chest. Pleural spaces: No pleural effusion.; No pneumothorax. Heart: The RV to LV ratio is 0.6. No pericardial effusion. Mediastinal space: No hiatal hernia. Lymph nodes: A partially calcified right hilar lymph node likely reflects prior, healed granulomatous disease. Liver: Hepatic hypodensities measuring less than 5 mm are too small to accurately characterize and require no follow-up. A simple hepatic cyst measures 0.6 cm. The adrenal glands are mildly thickened with adjacent edema. This may reflect adrenal congestion. This can precede non-traumatic adrenal hemorrhage. Bones/joints: No acute fracture is identified. CT/CT angio chest PE protcl [id number] IMPRESSION: 1. Assessment for pulmonary embolus is compromised by streak and motion artifacts. There is a tiny filling defect in a segmental branch of the right upper lobe pulmonary artery suspicious for a tiny pulmonary embolus. There is no evidence of right heart strain. 2. The adrenal glands are mildly thickened with adjacent edema. This may reflect adrenal congestion. This can precede non-traumatic adrenal hemorrhage. Radiation Dose CTDIVOL = (mGy): DLP = 518.34 (mGy-cm)
[2021-04-10 20:18] LABS: D Dimer <= 0.27 ug/mIFEU (0-0.59)
--- NOTE | 2021-04-10 20:33 | PC.NURSE ---
PATIENT CONNECTED TO CARDIAC MONITORING.
[2021-04-10] MEDS: iohexol 350 mg/mL 100 mL Btl IV (20:47)
[2021-04-10] MEDS: sodium chloride 0.9% 1,000 ML 999 ML IV (21:09)
--- NOTE | 2021-04-10 21:10 | PC.NURSE ---
SENIOR CARE SPECIALIST ON PATIENT.
[2021-04-10 21:25] LABS: Troponin 5 2HR 10.83 ng/L (0-10); Troponin 5 2HR Delta 3.83 ABS# (0-10)
--- NOTE | 2021-04-10 22:33 | PC.NURSE ---
Received report from TOMAS Salguero at 2220. In to check on patient at this time, doctor is at bedside. Patient has complaints of headache pain 03/05. Verbal orders received.
--- NOTE | 2021-04-10 23:05 | PM.HP ---
Providers/Chief Complaint Primary Care Provider: Niko Moreno DO Chief Complaint: HYPERTENSION History of Present Illness Shandra Alvarez is a 60 year old female with a past medical history of hypertension, who presents to [facility] due to plaints of nausea, headaches, labile hypertension. Patient tells me that she has been in good health, however for the last few days, she has been noticing that she has been having headaches,, and nausea, she checked her blood pressure, and some in the 200s over 110s, normally her blood pressure is quite well controlled, she came to [facility], was given blood pressure medications, but her blood pressures fell she tells me to the 60s over 40s, eventually her blood pressures normalized, she was sent home to follow-up with her primary care provider, who increased from lisinopril to 20 twice daily, she was also given Lexapro for anxiety, but it made her very nauseous, she came back to [facility] again for nausea, and elevated blood pressures, and again her blood pressures varied quite widely. She tells me that she continues to have headaches, no blurry vision, no tinnitus, no aura. She denies any weight loss, no fatigue, no bloody urine, she has had a colonoscopy which was normal, in the emergency room she was found to have a small right upper lobe pulmonary emboli, hospitalist team was called for admission. In the emergency room she is normotensive, sinus tachycardia heart rates in the low 100s, saturating in the high 90s on room air, she is complaining of a headache, Review of Systems Const: Denies: fever(s), chills, fatigue or malaise Eyes: Denies: change in vision or blurry vision ENMT: Denies: nasal congestion Card: Denies: chest pain, palpitations, irregular heart rhythm, edema, swelling of feet/ankles, lightheadedness, syncope, pre-syncope or dyspnea on exertion Resp: Denies: dyspnea, productive cough, non-productive cough or wheezing GI: Reports: nausea; Denies: abdominal pain, vomiting, hematemesis, diarrhea, constipation, hematochezia or melena : Denies: flank pain, dysuria or urinary frequency Musc: Denies: neck pain or back pain Skin/Breast: Denies: rash Neuro: Reports: headache(s); Denies: numbness in extremities, weakness in extremities, sensory changes, lack of coordination, difficulty walking, dizziness, vertigo or Slurred speech present Psych: Denies: anxiety or depression Endo: Denies: polyuria or polydipsia Medications/Allergies Home Medications Medication Instructions Recorded Confirmed Last Taken Type acetaminophen [Tylenol] 325 mg PO Q4H PRN 04/01/21 04/07/21 04/01/21 09:00 History lisinopril 20 mg PO DAILY 04/01/21 04/07/21 04/07/21 History amlodipine 10 mg PO DAILY PRN 04/07/21 04/07/21 Unknown History Allergies Allergy/AdvReac Type Severity Reaction Status Date / Time metoprolol Allergy ADR/ALGY-Pa Verified 04/01/21 10:46 lpitations PFSH Acute PFSH: Medical History (Updated 04/10/21 @ 23:13 by Steve Barnes MD) History of hypertension Labile hypertension Surgical History (Updated 04/10/21 @ 23:10 by Steve Barnes MD) History of hysterectomy Family History (Updated 04/10/21 @ 23:11 by Steve Barnes MD) Mother Hypertension Father Hypertension Cancer Social History (Updated 04/10/21 @ 23:11 by Steve Barnes MD) Smoking and tobacco status: never smoked Alcohol intake: current Alcohol intake frequency: holidays/special occasions only Substance/Drug Use: never Vitals/I&O/Wt Last Vital Signs Temp 98.3 F 04/10/21 22:31 Pulse 108 H 04/10/21 22:31 Resp 16 04/10/21 22:31 BP 146/86 04/10/21 22:31 Pulse Ox 98 04/10/21 22:31 04/10/21 04/10/21 04/11/21 14:59 22:59 06:59 Intake Total 1000 / 1000 Balance 1000 / 1000 Weight last 48 hrs Weight 63.503 kg Physical Exam Const: COMMON NORMALS: no acute distress and patient oriented x3 HENMT: COMMON NORMALS: normocephalic HEAD & SCALP: normocephalic Eye: COMMON NORMALS: Equal, round and reactive pupils present and EOMs intact bilaterally GENERAL EYE: appearance normal, both eyes and all related structures PUPIL: Yes Equal, round and reactive pupils present Neck/C-Spine: COMMON NORMALS: full ROM and Thyroid normal Lymph: LYMPHATIC: lymphadenopathy Resp: COMMON NORMALS: normal respiratory effort, No retractions, No use of accessory muscles and clear to auscultation bilaterally AUSCULTATION: clear to auscultation bilaterally Cardio: COMMON NORMALS: regular rhythm, S1 normal heart sound present, S2 normal heart sound present and No gallops present (Cardio) RATE: tachycardic RHYTHM: regular rhythm HEART SOUNDS: S1 normal heart sound present and S2 normal heart sound present GI: COMMON NORMALS: Normal to inspection, nondistended, normoactive bowel sounds present, Soft to palpation, non-tender and No hepatosplenomegaly present PALPATION: Yes Soft to palpation and Yes No hepatosplenomegaly present Extremity: COMMON NORMALS: normal to inspection, full ROM and no pedal edema Neuro: COMMON NORMALS: patient oriented x3, CN's II-XII intact bilaterally, moves all extremities and no focal motor deficits Psych: COMMON NORMALS: mental status grossly normal, Normal thought process present and cooperative THOUGHT PROCESS: Normal thought process present Data : 04/10/21 17:08 04/10/21 17:08 A&P Assessment and plan (1) Pulmonary embolism: Pulmonary embolism, right upper lobe, small clot burden sinus tachycardia Plan -Therapeutic Lovenox -Telemetry monitoring -Serial troponins, serial EKGs, no complaints of chest pain -Oxygen therapy as needed -Cardiac echocardiogram -Full code -Lovenox for DVT prophylaxis Labile hypertension, continue to monitor -Continue to monitor blood pressures -TSH, cortisol, urine catecholamines Headaches, tramadol as needed Anxiety, and Xanax as needed Hyponatremia, dehydration, IV fluids Status: Acute (2) Labile hypertension: Status: Acute Attestations Medical Necessity Statement*: Patient requires hospitalization for pulmonary embolism, labile hypertension, dehydration, hyponatremia, outpatient with observation Coding Level of Care Code 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
--- NOTE | 2021-04-10 23:26 | ECG_ITS ---
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 Measurements Intervals [place] Rate: 132 P: 52 AK: 143 QRS: -38 QRSD: 93 T: 43 QT: 401 QTc: 596 Interpretive Statements SINUS TACHYCARDIA LEFT AXIS DEVIATION [QRS AXIS < -30] INCOMPLETE RIGHT BUNDLE BRANCH BLOCK [90+ ms QRS DURATION, TERMINAL R IN V1/V2, 40+ ms S IN I/aVL/V4/V5/V6] Compared to ECG 04/10/2021 19:13:15 Left-axis deviation now present Myocardial infarct finding no longer present Electronically Signed On 04-12-2021 19:26:09 CDT by Holly Ambriz M.D. [id number]
[2021-04-10] MEDS: acetaminophen 500 mg Tablet 1000 MG PO (23:33)
[2021-04-10 23:54] LABS: Troponin 5 6HR 11.59 ng/L (0-10); Troponin 5 6HR Delta 4.59 ng/L (0-12)
[2021-04-11] VITALS (8 sets, daily range): BP systolic 107–174; BP diastolic 68–98; PULSE 71–108; RESP 16–18; TEMP 36.3–36.9; O2SAT 97–100
--- NOTE | 2021-04-11 01:17 | USCV_ITS ---
Shandra Alvarez Age: 60 Gender: F : 1960 Exam Date: 04/11/2021 06:22 Ordering Phys: Steve Barnes MD Technologist: Abbi Floyd Exam Location: [facility] [place] Indication: PE HISTORY: Pulmonary embolism. PROCEDURES: Venous duplex imaging was performed in bilateral lower extremities. The following venous structures were evaluated: common femoral vein, profunda vein, proximal portion of the greater saphenous vein, superficial femoral vein, and the popliteal vein. In addition, the posterior tibial and peroneal trunk were evaluated. Serial compression, augmentation maneuvers, and spectral Doppler flow evaluation were performed. FINDINGS: Normal 2-D Doppler and augmentation and compressibility throughout the lower extremity venous structures. Additional imaging through the proximal calf veins also reveals no thrombus. Limited evaluation of the greater saphenous vein is patent with no thrombus. CONCLUSIONS No evidence of bilateral lower extremity DVT. Dr. Noemy Malone DO (Electronically Signed) Final Date: 11 April 2021 09:01 S
--- NOTE | 2021-04-11 01:17 | USCV_ITS ---
Shandra Avlarez Age: 60 Gender: F : 1960 Exam Date: 04/11/2021 06:42 Ordering Phys: Steve Barnes MD Technologist: Abbi Floyd Exam Location: [facility] [place] Indication: PE BP: 107 / 68 HR: 84 Rhythm: Sinus Technical Quality: Adequate MEASUREMENTS (Male / Female) Normal Values 2D ECHO LV Diastolic Diameter PLAX 4.1 cm 4.2 - 5.9 / 3.9 - 5.3 cm LV Systolic Diameter PLAX 2.8 cm IVS Diastolic Thickness 1.2 cm 0.6 - 1.0 / 0.6 - 0.9 cm IVS Systolic Thickness 1.5 cm LVPW Diastolic Thickness 1.2 cm 0.6 - 1.0 / 0.6 - 0.9 cm LVPW Systolic Thickness 1.8 cm LVOT Diameter 2.0 cm LV Ejection Fraction 2D Teich 62.3 % LV Ejection Fraction MOD 2C 55.1 % LV Ejection Fraction 2C AL 55.4 % LA Diameter 2.8 cm LA Width 3.5 cm LA Height 4.8 cm RA Width 2.9 cm RA Height 4.0 cm Aorta at Sinotubular Diameter 2.3 cm M-MODE Aortic Annulus Diameter 2.1 cm LA Ao Ratio MM 1.5 MV E Point Septal Separation 0.3 cm DOPPLER AV Peak Velocity 123.0 cm/s LVOT Peak Velocity 108.0 cm/s AV Area Cont Eq vti 3.0 cm squared AV Area Cont Eq pk 2.8 cm squared MV Peak Velocity 100.0 cm/s MV Area PHT 4.4 cm squared Mitral E to A Ratio 1.2 MV E' Velocity 45.5 cm/s Mitral E to MV E' Ratio 9.0 Mitral E to LV E' Lateral Ratio 9.2 Mitral E to LV E' Septal Ratio 8.8 TR Peak Velocity 201.8 cm/s TR Peak Gradient 16.3 mmHg TR Mean Velocity 179.5 cm/s TR Mean Gradient 13.2 mmHg TR Velocity Time Integral 54.6 cm TV Peak E Velocity 50.0 cm/s Right Atrial Pressure 3.0 mmHg Pulmonary Artery Systolic Pressu 19.3 mmHg PV Peak Velocity 97.0 cm/s RV Acceleration Time 0.1 s RV Ejection Time 0.3 s RV AcT/ET 0.3 FINDINGS Left Ventricle Normal left ventricular cavity size and systolic function. Left ventricular ejection fraction is estimated at 65 %. No regional wall motion abnormalities. Normal diastolic function. Right Ventricle Normal right ventricular size and systolic function. Right ventricular systolic pressure 19.3 mmHg. Right Atrium Normal right atrial size. Left Atrium Upper normal left atrial size. Mitral Valve Structurally normal mitral valve. No mitral valve stenosis. Trace mitral valve regurgitation. Aortic Valve Structurally normal trileaflet aortic valve. No aortic valve stenosis. No aortic valve regurgitation. Tricuspid Valve Structurally normal tricuspid valve. No tricuspid valve stenosis. Trace tricuspid valve regurgitation. Pulmonic Valve Pulmonic valve not well visualized. No pulmonary valve stenosis. No pulmonary valve regurgitation. Pericardium No pericardial effusion. Aorta Normal size aortic root and proximal ascending aorta. Normal sized aortic root. CONCLUSIONS 1. Normal left ventricular cavity size and systolic function. Left ventricular ejection fraction is estimated at 65 %. No regional wall motion abnormalities. Normal diastolic function. 2. Normal right ventricular size and systolic function. 3. Normal pulmonary artery pressure. 4. No significant valvular abnormality. 5. No prior similar studies to compare. Holly Ambriz MD (Electronically Signed) Final Date: 11 April 2021 19:04 S
[2021-04-11 01:26] LABS: Cortisol Random 11.24 ug/dL (2.47-19.5)
[2021-04-11] MEDS: lisinopril 10 mg Tablet PO ×2 (01:44→13:25)
[2021-04-11] MEDS: enoxaparin 60 mg/0.6 mL Syringe SUBCUT ×2 (01:44→13:25)
[2021-04-11] MEDS: dextrose 5%-sod chloride 0.9% 1,000 ML 75 ML IV ×2 (01:44→15:46)
[2021-04-11 02:23] LABS: Basophils % 0.4 %; Eosinophils % 0.1 %; Hematocrit 40.7 % (37.0-47.0); Hemoglobin 13.6 g/dL (11.5-15.3); Lymphocytes # 2.1 10^3/uL (0.8-4.8); Lymphocytes % 26.1 %; Mean Corpuscular HGB Conc 33.4 g/dL (30.0-36.0); Mean Corpuscular Hemoglobin 30.2 pg (28.0-34.0); Mean Corpuscular Volume 90.4 fl (81-99); Mean Platelet Volume 9.9 fL (7.4-10.4); Monocytes # 0.7 10^3/uL (0.2-0.9); Monocytes % 8.7 %; Neutrophils # 5.16 10^3/uL (1.8-7.7); Neutrophils % 64.5 %; Nucleated Red Blood Cells % 0 %; Platelet Count 293 10^3/cmm (130-400); Red Cell Distribution Width 11.8 % (12.1-15.1)
[2021-04-11] MEDS: TRAMadol 50 mg Tablet 25 MG PO (02:35)
[2021-04-11 02:50] LABS: Alanine Aminotransferase 17 U/L (0-33); Albumin Level 4.2 g/dL (3.5-5.2); Alkaline Phosphatase 85 IU/L (35-105); Anion Gap 13.7 (5-19); Aspartate Amino Transferase 15 U/L (0-32); Blood Urea Nitrogen 5 mg/dL (6-20); Calcium 8.8 mg/dL (8.5-10.5); Carbon Dioxide 26 mmol/L (22-29); Chloride 102 mmol/L (98-107); Globulin 2.8 g/dL (1.3-4.6); Glomerular Filtration Rate 126.3 mL/min (90-130); Glucose 106 mg/dL (65-115); Magnesium 2.1 mg/dL (1.7-2.3); Osmolality Calculated 284 mOsm/kg (285-295); Phosphorus 2.7 mg/dL (2.5-4.5); Potassium 3.7 mmol/L (3.5-5.1); Sodium 138 mmol/L (136-145); Total Bilirubin 0.3 mg/dL (0.15-1.2)
[2021-04-11 02:55] LABS: NT Pro B Type Natriuretic Pept 42 pg/mL (0-125)
--- NOTE | 2021-04-11 09:00 | PC.NURSE ---
Patient refused her morning dose of Protonix because she states, There is nothing sunny with my stomach so I do not need it.
--- NOTE | 2021-04-11 10:22 | PC.CHAP ---
Pastoral Care Encounter/Spiritual Assessment Type of Contact [] Declined survey research teacher visit [] Patient/Family/Request visit [] Outpatient visit [] Follow-up visit [] Physician referral [] Code/Alert [x] Routine visit [] Staff referral [] Actively dying [] Patient sleeping [] Family support [] [] Out of room [] Palliative care [] [x] Receiving care in room [] Pre-surgical visit [] Trauma [x] Long length of stay [] ICU visit [] Other: Relational/Emotional Strength [x] Patient feels connected with others/family/visitors/staff [] Distress [] Loneliness/isolation [] Abandonment Spirituality of Patient [x] Person of Darlin [] Attends Baptism of their Darlin [x] Believes in Prayer [] Reads Bible or Pentecostal materials [] There are Spiritual issues to be addressed [employer]el [employer]pper Interventions [x] Prayer [x] Active listening [x] Non-anxious presence [x] Spiritual/emotional support [] Crisis/trauma care [x] Spiritual counseling [] Bereavement support [] Provided bereavement packet [] Provided Bible/devotional materials [] Provided toy/stuffed animal, coloring book to patient or family member [] Provided Communion [] Anointing/[place] [x] Salvation [] Completed spiritual assessment [] Other: Impact on Illness or Injury [] Angry [] Fearful [] Anxious [] Often cries [] Exhaustion [] Unable to work [] Unable to attend cheondoism [] Unable to walk/stand [] Unable to read [] Unable to drive [] Unable to eat/drink [] Unable to sleep [] Unable to be with family [] Patient intubated [] Other: Summary in pain doesn't know about her health waiting on doctor hopes her health will get beter Time spent with patient 10 mins
[2021-04-11] MEDS: ALPRAZolam 0.5 mg Tablet 0.25 MG PO (13:32)
--- NOTE | 2021-04-11 15:12 | CTR_ITS ---
PROCEDURE INFORMATION: Exam: CT Abdomen And Pelvis With Contrast Exam date and time: 04/11/2021 3:12 PM Age: 60 years old Clinical indication: Screening exam; Other: Pheochromocytoma eval; Prior surgery; Surgery type: Hyst; Additional info: Pheochromocytoma evaluation TECHNIQUE: Imaging protocol: Computed tomography of the abdomen and pelvis with contrast. Radiation optimization: All CT scans at this facility use at least one of these dose optimization techniques: automated exposure control; mA and/or kV adjustment per patient size (includes targeted exams where dose is matched to clinical indication); or iterative reconstruction. Contrast material: OMNI 300; Contrast volume: 95 ml; Contrast route: INTRAVENOUS (IV); Other contrast: Oral, omni 300, 25; COMPARISON: CT angio chest PE protcl [id number] 04/10/2021 8:44 PM RADIATION DOSE METRICS: Total DLP (mGy-cm): 984.79 FINDINGS: Lungs: Bibasilar atelectasis. Liver: Several subcentimeter hepatic cysts. Gallbladder and bile ducts: Vicarious secretion of contrast or biliary sludge seen in the gallbladder. Pancreas: Normal. No ductal dilation. Spleen: Normal. No splenomegaly. Adrenal glands: Adrenal glands again appear mildly thickened with some surrounding edema, similar to prior exam of uncertain etiology Kidneys and ureters: Normal. No hydronephrosis. Stomach and bowel: Constipation. Appendix: No evidence of appendicitis. Intraperitoneal space: Unremarkable. No free air. No significant fluid collection. Vasculature: Unremarkable. No abdominal aortic aneurysm. Lymph nodes: Unremarkable. No enlarged lymph nodes. Urinary bladder: Unremarkable as visualized. Reproductive: Unremarkable as visualized. Bones/joints: Unremarkable. No acute fracture. Soft tissues: Unremarkable. CT/CT abdomen pelvis w con* [id number] IMPRESSION: 1. Negative for acute inflammatory process in the abdomen or pelvis. 2. Bibasilar atelectasis. 3. Several subcentimeter hepatic cysts. 4. Vicarious secretion of contrast or biliary sludge seen in the gallbladder. 5. Constipation. 6. Adrenal glands again appear mildly thickened with some surrounding edema, similar to prior exam of uncertain etiology Radiation Dose CTDIVOL = (mGy): DLP = 984.79 (mGy-cm)
--- NOTE | 2021-04-11 15:14 | P.PN_ITS ---
Subjective Subjective: Interval history: Patient was seen and examined this morning, was complaining of uncontrolled as well as anxiety. other vitals and labs have reviewed. Medications: Reviewed: Yes Vitals/I&O/Wt Last Vital Signs Temp 97.8 F 04/11/21 11:13 Pulse 88 04/11/21 11:13 Resp 18 04/11/21 11:13 BP 163/94 04/11/21 11:13 Pulse Ox 97 04/11/21 11:13 04/11/21 04/11/21 04/11/21 06:59 14:59 22:59 Intake Total 480 / 1480 240 / 240 Output Total 250 / 250 Balance 230 / 1230 240 / 240 Weight last 48 hrs Weight 63.503 kg Physical Exam Const: COMMON NORMALS: patient oriented x3 HENMT: COMMON NORMALS: normocephalic and atraumatic HEAD & SCALP: normocephalic and atraumatic Chest: COMMONS NORMALS: normal inspection of the chest and normal palpation of entire chest wall CHEST: Yes Symmetrical chest wall rise Resp: COMMON NORMALS: normal respiratory effort, No retractions, No use of accessory muscles and clear to auscultation bilaterally EFFORT & INSPECTION: Yes symmetric chest movement AUSCULTATION: clear to auscultation bilaterally Cardio: COMMON NORMALS: regular rate, regular rhythm, S1 normal heart sound present, S2 normal heart sound present, No gallops present (Cardio), No murmurs present (Cardio), No rub (Cardio) and Peripheral pulses 2+ throughout RATE: regular rate RHYTHM: regular rhythm HEART SOUNDS: S1 normal heart sound present and S2 normal heart sound present PERIPHERAL PULSES: Peripheral pulses 2+ throughout GI: COMMON NORMALS: Normal to inspection, nondistended, normoactive bowel sounds present, Soft to palpation, non-tender, No hepatosplenomegaly present and no masses AUSCULTATION: Yes normoactive bowel sounds PALPATION: Yes Soft to palpation and Yes No hepatosplenomegaly present RECTAL EXAM: deferred Extremity: COMMON NORMALS: no clubbing, cyanosis or edema and no pedal edema Neuro: COMMON NORMALS: patient oriented x3 Data : 04/11/21 02:00 04/11/21 02:00 A&P Assessment and plan (1) Pulmonary embolism: Pulmonary embolism, right upper lobe, small clot burden sinus tachycardia Plan -Therapeutic Lovenox -Telemetry monitoring -Serial troponins, serial EKGs, no complaints of chest pain -Oxygen therapy as needed -Cardiac echocardiogram -Full code -Lovenox for DVT prophylaxis Labile hypertension, continue to monitor -Continue to monitor blood pressures -TSH, cortisol, urine catecholamines Headaches, tramadol as needed Anxiety, and Xanax as needed Hyponatremia, dehydration, IV fluids Status: Acute (2) Labile hypertension: Status: Acute Additional A&P Information Possible pheochromocytoma on her clinical presentation ( Episodic Headache, ta chycardia, and Malignant HTN, nervousness as well as palpitation) : C.T Abdomen and Pelvis with contrast .Plasma metanephrine level. Will do MEN 2a as well as Men2b work up as well. Attestations Medical Necessity Statement*: Patient needs to be in hospital for the management of P/E as well as malignant HTN. 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
[2021-04-11] MEDS: iohexol 300 mg/mL 50 mL Btl IV (15:40)
[2021-04-11] MEDS: iohexol 300 mg/mL 100 mL Btl IV (17:26)
[2021-04-11] MEDS: ondansetron 2 mg/ML SDV 2 mL 4 MG IVP (18:23)
--- NOTE | 2021-04-11 18:50 | PC.NURSE ---
Report to Nette MARIN at this time.
[2021-04-12 00:05] VITALS: BP 132/83; PULSE 74; RESP 16; TEMP 37; O2SAT 97
[2021-04-12] MEDS: lisinopril 10 mg Tablet PO (01:45)
[2021-04-12] MEDS: enoxaparin 60 mg/0.6 mL Syringe SUBCUT (01:45)
[2021-04-12 03:20] VITALS: BP 115/74; PULSE 71; RESP 16; TEMP 36.9; O2SAT 98
[2021-04-12] MEDS: dextrose 5%-sod chloride 0.9% 1,000 ML 75 ML IV (05:09)
[2021-04-12 05:12] VITALS: PULSE 74
[2021-04-12 05:14] LABS: Basophils % 0.5 %; Eosinophils % 0.7 %; Hematocrit 37.4 % (37.0-47.0); Hemoglobin 12.1 g/dL (11.5-15.3); Lymphocytes # 2.8 10^3/uL (0.8-4.8); Lymphocytes % 46.4 %; Mean Corpuscular HGB Conc 32.4 g/dL (30.0-36.0); Mean Corpuscular Hemoglobin 30.6 pg (28.0-34.0); Mean Corpuscular Volume 94.4 fl (81-99); Mean Platelet Volume 10.1 fL (7.4-10.4); Monocytes # 0.5 10^3/uL (0.2-0.9); Monocytes % 7.6 %; Neutrophils # 2.65 10^3/uL (1.8-7.7); Neutrophils % 44.6 %; Nucleated Red Blood Cells % 0 %; Platelet Count 259 10^3/cmm (130-400); Red Blood Count 3.96 10^6/uL (4.1-5.3); White Blood Count 5.9 10^3/uL (4.0-10.0)
[2021-04-12 05:47] LABS: Alanine Aminotransferase 12 U/L (0-33); Albumin Level 3.6 g/dL (3.5-5.2); Alkaline Phosphatase 67 IU/L (35-105); Anion Gap 12.4 (5-19); Aspartate Amino Transferase 13 U/L (0-32); Blood Urea Nitrogen 5 mg/dL (6-20); Calcium 8.9 mg/dL (8.5-10.5); Carbon Dioxide 26 mmol/L (22-29); Chloride 105 mmol/L (98-107); Globulin 2.2 g/dL (1.3-4.6); Glomerular Filtration Rate 102.3 mL/min (90-130); Glucose 96 mg/dL (65-115); Osmolality Calculated 285 mOsm/kg (285-295); Phosphorus 4.1 mg/dL (2.5-4.5); Potassium 4.4 mmol/L (3.5-5.1); Sodium 139 mmol/L (136-145); Total Bilirubin 0.4 mg/dL (0.15-1.2); Total Protein 5.8 g/dL (6.6-8.7)
--- NOTE | 2021-04-12 06:31 | PC.NURSE ---
Patient AAOx4, VSS, rested well throughout night, no new events, no needs at this time, no c/o pain. Room clutter free and call light in reach. OOBT bathroom with no complications. Report and handoff to oncoming nurse at shift change.
[2021-04-12 07:35] VITALS: BP 121/83; PULSE 87; RESP 17; TEMP 36.6; O2SAT 99
[2021-04-12] MEDS: pantoprazole DR 40 mg Tablet PO (08:59)
--- NOTE | 2021-04-12 10:00 | PC.NURSE ---
Dr. Howe at bedside with this nurse to speak with patient and to patient's daughter and siste who are on speaker phone. Dr. Howe explained discharge and patient and family are in agreement. Patient is A&Ox3. Respirations even and non-labored on room air.
--- NOTE | 2021-04-12 10:12 | P.DS_ITS ---
Discharge Providers Date of Admission: 04/11/21 00:04 Date of Discharge: April 12, 2021 Attending Provider at Admission: Steve Barnes MD Attending Provider at Discharge: Gareth Howe MD Primary Care Provider: Niko Moreno DO Diagnoses at Discharge Discharge Diagnosis (1) Pulmonary embolism: Status: Acute (2) Labile hypertension: Status: Acute Reason for Visit Reason for Visit: HYPERTENSION Hospital Course Hospital Course 60 year old female with a past medical history of hypertension, who presents to [facility] due to plaints of nausea, headaches, labile hypertension.According to her in the last few weeks she has experienced episodic headache, high blood pressure, palpitation, anxiety, tremors, nausea, vomiting.Upon arrival in the ER she was worked up for above-mentioned complaint. CT angio chest with contrast: Revealed acute PE. She was started on therapeutic anticoagulation and was discharged on Eliquis she will be on Eliquis for minimum 6 months to a year for unprovoked PE. Bilateral lower extremity Doppler vein was negative for DVT. Given her history she was also worked up for possible pheochromocytoma/paraganglioma. Plasma fractionated metanephrine was sent, as well as CT abdomen pelvis with contrast was done: Adrenal glands again appear mildly thickened with some surrounding edema. 2D echo was done: Normal left ventricular cavity size and systolic function. Left ventricular ejection fraction is estimated at 65 %. No regional wall motion abnormalities. Normal diastolic function. Normal right ventricular size and systolic function. Normal pulmonary artery pressure. No significant valvular abnormality. Telemetry monitoring was done: No significant arrhythmia was noted. Patient responded well to the above medical management and is being discharged in stable condition to home. She will follow Dr. Russell in his outpatient, as well as her PCP. Physical Exam Const: COMMON NORMALS: patient oriented x3 HENMT: COMMON NORMALS: normocephalic and atraumatic HEAD & SCALP: normoce phalic and atraumatic Chest: COMMONS NORMALS: normal inspection of the chest and normal palpation of entire chest wall CHEST: Yes Symmetrical chest wall rise Resp: COMMON NORMALS: normal respiratory effort, No retractions, No use of accessory muscles and clear to auscultation bilaterally EFFORT & INSPECTION: Yes symmetric chest movement AUSCULTATION: clear to auscultation bilaterally Cardio: COMMON NORMALS: regular rate, regular rhythm, S1 normal heart sound present, S2 normal heart sound present, No gallops present (Cardio), No murmurs present (Cardio), No rub (Cardio) and Peripheral pulses 2+ throughout RATE: regular rate RHYTHM: regular rhythm HEART SOUNDS: S1 normal heart sound present and S2 normal heart sound present PERIPHERAL PULSES: Peripheral pulses 2+ throughout GI: COMMON NORMALS: Normal to inspection, nondistended, normoactive bowel sounds present, Soft to palpation, non-tender, No hepatosplenomegaly present and no masses AUSCULTATION: Yes normoactive bowel sounds PALPATION: Yes Soft to palpation and Yes No hepatosplenomegaly present RECTAL EXAM: deferred Extremity: COMMON NORMALS: no clubbing, cyanosis or edema and no pedal edema Neuro: COMMON NORMALS: patient oriented x3 Discharge Data Data Completed and Pending: Completed Studies During Hospitalization Category Date Time Status CT abdomen pelvis w con* [id number] Rout ine Cat Scan 04/11/21 15:[address] angio chest PE protcl [id number] Urge nt Cat Scan 04/10/21 20:[address] head wo con* [id number] Urgent Cat Scan 04/10/21 17:46 Completed XR chest 1V zach ble [id number] Stat Exams 04/10/21 17:25 [place] [id number] Routin e Ultrasound 04/11/21 01:17 Completed CV. echo complete * [id number] Routine Ultrasound 04/11/21 01:17 Completed Pending at discharge Category Date Time Status Catecholamines Fr ac,Urine [place] Rout ine Lab 04/11/21 02:30 Received Complete Blood Co unt w/Auto AM LABS Lab 04/13/21 04:00 Ordered Comprehensive Met abolic Panel AM LA BS Lab 04/13/21 04:00 Ordered Magnesium AM LABS Lab 04/13/21 04:00 Ordered Miscellaneous Ammy t Routine Lab 04/11/21 02:00 Received Miscellaneous Ammy t Routine Lab 04/12/21 08:50 Received Phosphorus AM LAB S Lab 04/13/21 04:00 Ordered Labs from last 24 hours 04/12/21 04/12/21 04/12/21 08:50 04:24 04:24 WBC 5.9 RBC 3.96 L Hgb 12.1 Hct 37.4 MCV 94.4 MCH 30.6 MCHC 32.4 RDW 12.0 L Plt Count 259 MPV 10.1 Neut % (Auto) 44.6 Lymph % (Auto) 46.4 [place] % (Auto) 7.6 Eos % (Auto) 0.7 Baso % (Auto) 0.5 Neut # (Auto) 2.65 Lymph # (Auto) 2.8 [place] # (Auto) 0.5 Eos # (Auto) 0.0 Baso # (Auto) 0.0 Nucleated RBC % (a uto) 0 Nucleated RBCs # 0.0 Sodium 139 Potassium 4.4 Chloride 105 Carbon Dioxide 26 Anion Gap 12.4 BUN 5 L Creatinine 0.6 GFR Calculation 102.3 Glucose 96 Calculated Osmolal ity 285 Calcium 8.9 Phosphorus 4.1 Magnesium 2.0 Total Bilirubin 0.4 AST 13 ALT 12 Alkaline Phosphata se 67 Total Protein 5.8 L Albumin 3.6 Globulin 2.2 Misc Test Referenc e Pending 04/11/21 02:00 WBC RBC Hgb Hct MCV MCH MCHC RDW Plt Count MPV Neut % (Auto) Lymph % (Auto) [place] % (Auto) Eos % (Auto) Baso % (Auto) Neut # (Auto) Lymph # (Auto) [place] # (Auto) Eos # (Auto) Baso # (Auto) Nucleated RBC % (a uto) Nucleated RBCs # Sodium Potassium Chloride Carbon Dioxide Anion Gap BUN Creatinine GFR Calculation Glucose Calculated Osmolal ity Calcium Phosphorus Magnesium Total Bilirubin AST ALT Alkaline Phosphata se Total Protein Albumin Globulin Misc Test Referenc e Pending Vitals: Last Vital Signs Temp 97.8 F 04/12/21 07:35 Pulse 87 04/12/21 07:35 Resp 17 04/12/21 07:35 BP 121/83 04/12/21 07:35 Pulse Ox 99 04/12/21 07:35 Discharge Plan Discharge Patient Disposition: Home Condition: Stable Prescriptions: New Eliquis 5 mg tablet 5 mg PO BID Qty: 60 RF: 3 Continued acetaminophen [Tylenol] 325 mg Tablet 325 mg PO Q4H PRN (Reason: Pain) RF: 0 lisinopril 10 mg tablet 20 mg PO DAILY RF: 0 amlodipine 10 mg tablet 10 mg PO DAILY PRN (Reason: Blood Pressure) RF: 0 alprazolam 0.25 mg tablet 0.25 mg PO BID RF: 0 Discharge Orders: Discharge Order (Routine); Ordered 04/12/21 Ordered By: Gareth Howe Referrals: Niko Moreno, [Primary Care Provider] - 04/17/21 9:50 am Aldair Russell MD [Physician] - 04/26/21 8:45 am Discharge Diet: Regular Discharge Activity: Resume usual activity Patient Instructions: Apixaban (By mouth), Pulmonary Embolism (DC), Chronic Hypertension (GEN), Opioid Safety Discharge Attestations Time Spent in Discharge Care*: less than 30 min Specific Discharge Activities: educating patient, educating and/or supporting family/caregiver, discussing with pcp/other providers, discussing with machine adjuster leader case trim/social workers/dc planners, documenting/other paperwork and evaluating patient/reviewing data Status at Discharge: Cognitive status at discharge: cognitively intact , Behavioral status at discharge: cooperative , Functional status at discharge: independent ambulation Overall status at discharge: patient is back to baseline Quality Metrics Clinical Quality Measures During this hospital stay, did patient experience: None Coding Level of Care Code Acute Chg FW DC note Diagnoses Pulmonary embolism I26.99 Labile hypertension R09.89
--- NOTE | 2021-04-12 11:00 | PC.NURSE ---
Patient being discharged today. Patient took her telemetry off at this time because she will be discharged in a little bit.
[2021-04-12 11:48] VITALS: BP 121/83; PULSE 87; RESP 17; TEMP 36.6; O2SAT 99
--- NOTE | 2021-04-12 11:52 | PC.NURSE ---
IV removed intact at this time. Patient tolerated well. Patient is A&Ox4. Respirations even and non-labored on room air.Reviewed patient discharge with patient and patient's sister at this time. Patient verbalized understanding of how to take discharge medications and was agreeable to follow up appointments. Patient wheel chaired to private car.
--- NOTE | 2021-04-15 12:34 | PC.SOCIAL ---
discharge follow up call made. spoke with patient. she picked up eliquis and is taking as prescribed along with her other home medications. patient has follow up appointments scheduled and she is aware of dates an times. patient denies questions or concerns.
[2021-04-22 21:18] LABS: Calculated Total (E+NE) 134 (9-74); Creatinine, Random Urine 15 mg/dL (20-275); Epinephrine Urine 17 (2-16); Norepinphrine Urine 117 (7-65)
== END 2021-04-12 11:50 | disposition home or self-care (01) ==
LOC: ER 22:25 → MEDSURG 04-11 00:05
PROVIDERS: Admitting Provider Family Medicine; Emergency Provider Physician Assistant; PCP Electrodiagnostic Medicine; Visit Provider Internal Medicine
DX: I26.99 Other pulmonary embolism without acute cor pulmonale (principal); R09.89 Other specified symptoms and signs involving the circulatory and respiratory systems; I10 Essential (primary) hypertension; Z79.01 Long term (current) use of anticoagulants; F41.9 Anxiety disorder, unspecified; R51.9 Headache, unspecified; Z86.711 Personal history of pulmonary embolism; Z82.49 Family history of ischemic heart disease and other diseases of the circulatory system
CPT/HCPCS: 36415; 70450; 71045; 71275; 74177; 80053; 81003; 82384; 82533; 82570; 83690; 83735; 83835; 83880; 84100; 84443; 84484; 85025; 85378; 93005; 93306; 93970; 96361; 96372; 96374; 96375; 99285; G0378; J0360; J1650; J2405; J7030; Q9967

== ENCOUNTER → 2021-04-26 08:33 | Outpatient (BNVA) | payer OTHER, SELFPAY | PROVIDERS: PCP Electrodiagnostic Medicine; Referring Provider Internal Medicine; Visit Provider Internal Medicine | DX: E27.9 Disorder of adrenal gland, unspecified (principal); I10 Essential (primary) hypertension; Z87.891 Personal history of nicotine dependence | CPT/HCPCS: 99204 ==

== ENCOUNTER 2021-05-01 06:18 | Outpatient (CLI) | payer OTHER, SELFPAY ==
[2021-05-01 06:47] LABS: Total Volume Urine 4125 ml
[2021-05-01 06:54] LABS: Creatinine 24 Hour Urine 1072.5 mg/dL (601-1689); Urine Creatinine 26 mg/dL (28-217)
[2021-05-01 07:00] LABS: Estmated Average Glucose 103; Hemoglobin A1C 5.2 % (4.0-6.0)
[2021-05-01 07:21] LABS: Anion Gap 13.8 (5-19); Blood Urea Nitrogen 9 mg/dL (6-20); Calcium 9.1 mg/dL (8.5-10.5); Carbon Dioxide 25 mmol/L (22-29); Chloride 101 mmol/L (98-107); Glomerular Filtration Rate 102.3 mL/min (90-130); Glucose 117 mg/dL (65-115); Osmolality Calculated 282 mOsm/kg (285-295); Potassium 3.8 mmol/L (3.5-5.1); Sodium 136 mmol/L (136-145); Thyroid Stimulating Hormone 1.52 uIU/mL (0.27-4.20)
[2021-05-04 23:12] LABS: Plasma Renin Activity LC/MS/MS 3.29 ng/mL/h (0.25-5.82)
[2021-05-06 19:21] LABS: Free Cortisol Urine 44.8 mcg/24 h (4.0-50.0); Total Urine 4125 mL; Urine Creatinine 1.15 g/24 h (0.50-2.15)
== END 2021-05-01 06:19 | disposition home or self-care (01) ==
LOC: LAB 06:20
PROVIDERS: PCP Electrodiagnostic Medicine; Visit Provider Internal Medicine
DX: E27.9 Disorder of adrenal gland, unspecified (principal); I10 Essential (primary) hypertension
CPT/HCPCS: 80048; 82088; 82530; 82570; 83036; 83835; 84244; 84439; 84443

== ENCOUNTER → 2021-05-10 09:08 | Outpatient (BNVA) | payer OTHER, SELFPAY | PROVIDERS: PCP Electrodiagnostic Medicine; Visit Provider Internal Medicine | DX: E27.9 Disorder of adrenal gland, unspecified (principal); I10 Essential (primary) hypertension | CPT/HCPCS: 99213 ==

== ENCOUNTER 2021-05-23 08:52 | Outpatient (CLI) | payer OTHER, SELFPAY ==
--- NOTE | 2021-05-23 09:00 | CT_ITS ---
WS: [id number] CT ABDOMEN AND PELVIS WITH AND WITHOUT CONTRAST HISTORY: Adrenal gland disorder. TECHNIQUE: Unenhanced 5 mm axial imaging first performed through the abdomen. Post contrast imaging t hrough the abdomen and pelvis. Adrenal protocol utilized with 1 minute and 15 minute delays. Oral con trast has not been provided. Sagittal and coronal reformats are submitted. All CT scans at [facility] use at least one of these dose optimization techniques: automated exposure control; mA and/o r kV adjustment per patient size (includes targeted exams where dose is matched to clinical indicatio n); or iterative reconstruction. CONTRAST: Omnipaque 300; 95 mL IV. DLP: 3708.11 mGy.cm COMPARISON: 04/11/2021 Lung bases are clear. Cardiomegaly and small hiatal hernia. Adrenal glands: There are no masses within either adrenal gland to be measured. There is very slight thickening of the RIGHT adrenal gland limbs. Less enhancement as compared to the prior study of 2020. There is continued bilateral LEFT adrenal gland limbs thickening without a discrete mass. The l ymph nodes measure up to 5 mm. There is less inflammatory enhancement surrounding the adrenal gland. There are numerous, too small to characterize hypodensities within the liver. Liver is slightly enlar ged. No bile duct dilatation. Normal size spleen. Gallbladder is normal. Normal pancreas. Mild athero sclerosis aorta. Kidneys are enhancing normally with no obstruction or calcification. No ascites or adenopathy. GI tract is nonobstructed. The appendix is normal. Urinary bladder is well distended. There is a very small amount of free fluid in the RIGHT adnexa. CT/CT abdomen pelvis wo/w [id number] IMPRESSION: 1. No discrete adrenal gland mass or nodule. 2. Mild hyperplasia of the LEFT adrenal gland. There is less inflammatory bowers ge surrounding the LEFT adrenal gland as compared to 04/11/2021. 3. Normal RIGHT adrenal gland. 4. Numerous hypodensities throughout the liver. These may be small cysts. Thes e are much too small to characterize. 5. Mild atherosclerosis aorta. 6. Normal appendix.
[2021-05-23] MEDS: iohexol 300 mg/mL 100 mL Btl IV (09:47)
== END 2021-05-23 08:53 | disposition home or self-care (01) ==
PROVIDERS: PCP Electrodiagnostic Medicine; Visit Provider Internal Medicine
DX: E27.9 Disorder of adrenal gland, unspecified (principal); I10 Essential (primary) hypertension; I70.0 Atherosclerosis of aorta
CPT/HCPCS: 74178

== ENCOUNTER 2021-06-03 13:14 | Outpatient (CLI) | payer OTHER, SELFPAY ==
--- NOTE | 2021-06-03 13:21 | MM_ITS ---
WS: [id number] BILATERAL SCREENING DIGITAL MAMMOGRAM WITH CAD HISTORY: SCREENING COMPARISON: 06/15/2019 and 05/15/2017 Bilateral CC and MLO views submitted. Computer aided detection analyzed. Breast composition: The breasts are extremely dense, which lowers the sensitivity of mammography. No suspicious masses, microcalcifications or architectural distortion. Numerous benign calcifications in each breast. These calcifications are benign in appearance and stable. MM/[place] [id number] IMPRESSION: BI-RADS: 2-Benign FOLLOW UP: 1 Year Follow-up
== END 2021-06-03 13:15 | disposition home or self-care (01) ==
LOC: RADSHAW 13:15
PROVIDERS: PCP Electrodiagnostic Medicine; Visit Provider Electrodiagnostic Medicine
DX: Z12.31 Encounter for screening mammogram for malignant neoplasm of breast (principal)
CPT/HCPCS: 77067

== ENCOUNTER 2021-11-09 23:27 | Emergency (ER) | payer OTHER, SELFPAY ==
[2021-11-09 23:38] VITALS: BP 183/113; PULSE 139; RESP 22; TEMP 36.8; O2SAT 97; BMI 23.0
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
[2021-11-10 01:03] VITALS: RESP 18; O2SAT 99
[2021-11-10] MEDS: morphine 4 mg/mL SDV 1 mL IVP (01:03)
[2021-11-10] MEDS: ondansetron 2 mg/ML SDV 2 mL 4 MG IVP (01:03)
[2021-11-10] MEDS: iohexol 300 mg/mL 100 mL Btl IV (01:22)
[2021-11-10] MEDS: HYDROcodone-acetaminophen 5-325 mg Tablet 1 TAB PO (02:03)
--- NOTE | 2021-11-10 02:03 | PC.NURSE ---
[employer] scanned and given for home to take later.
[2021-11-10 02:08] VITALS: BP 160/106; PULSE 102; RESP 20; O2SAT 98
[2021-11-10 02:09] VITALS: BP 106/106; PULSE 102; RESP 20
== END 2021-11-10 02:12 | disposition home or self-care (01) ==
PROVIDERS: Emergency Provider Emergency Medicine; PCP Electrodiagnostic Medicine
DX: S02.2XXA Fracture of nasal bones, initial encounter for closed fracture (principal); Y04.2XXA Assault by strike against or bumped into by another person, initial encounter
CPT/HCPCS: 70450; 70486; 71260; 72125; 96374; 96375; 99284; J2270; J2405; Q9967

== ENCOUNTER 2023-11-27 09:35 | Outpatient (CLI) | payer OTHER, SELFPAY ==
--- NOTE | 2023-11-27 09:41 | MM_ITS ---
WS: [id number] BILATERAL 3D TOMOSYNTHESIS DIGITAL SCREENING MAMMOGRAPHY WITH CAD CLINICAL INFORMATION: SCREENING HISTORY: Screening mammogram. No current complaints. COMPARISON: 2020 TECHNIQUE: Bilateral CC and MLO views. FINDINGS: The breasts are composed of heterogeneous fibroglandular density tissue, which can limit the detectio n of small underlying mass lesions. No suspicious mass, asymmetry, calcifications, or architectural d istortion. No evidence of malignancy. Vascular calcifications. Incidental punctate and lucent centere d calcifications. Stable cluster calcifications RIGHT breast. MM/[place] [id number] IMPRESSION: BI-RADS: 2-Benign FOLLOW UP: 1 Year Follow-up Recommend return to annual screening mammography.
== END 2023-11-27 09:36 | disposition home or self-care (01) ==
LOC: RAD 09:36
PROVIDERS: PCP Electrodiagnostic Medicine; Visit Provider Electrodiagnostic Medicine
DX: Z12.31 Encounter for screening mammogram for malignant neoplasm of breast (principal)
CPT/HCPCS: 77063; 77067